=== PATIENT | female | born 1970 | race Caucasian/White ===

== ENCOUNTER → 2017-10-08 | Outpatient (CLI) | payer MEDICAID | LOC: FCPNEURO 21:00 | PROVIDERS: ATTEND Psychiatry & Neurology Neurology | DX: G47.33 Obstructive sleep apnea (adult) (pediatric) (principal) | CPT/HCPCS: 84144-90; 84481-90 ==

== ENCOUNTER → 2017-11-28 | Outpatient (CLI) | payer MEDICAID | LOC: FIMAGING 10:13 | PROVIDERS: ATTEND Obstetrics & Gynecology | DX: O09.521 Supervision of elderly multigravida, first trimester (principal); D25.9 Leiomyoma of uterus, unspecified; Z3A.12 12 weeks gestation of pregnancy ==

== ENCOUNTER 2018-06-18 13:55 | Observation (INO) | payer MEDICAID ==
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
[2018-06-18 15:18] LABS: PLATELET COUNT 176 10^3/uL (150-400)
--- NOTE | 2018-06-18 17:27 | OBGCSDC ---
General Delivery Information - General Info : 2 Para: 0 Abortions: 1 L&D Analgesia/Anesthesia Type: Other (Specify) (not delivered) Admission Date: 06/18/18 Labs: Hct 35.2 % (38.0-47.0) L 06/18/18 15:08 - Hospital Course Antepartum: 06/18/18 17:19 Pt had reactive NST and BPP schedule in office today. She had 8/8 on BPP and NST was started but patient's BP in office was 160/88 and the repeat pressure by this CNM was 158/90. PT sent to L&D for evaluation and PIH labs. Pt had continued reactive NST on L&D but BP continued to remain elevated. PIH labs wnl. Pt counselled on recommendation for induction of labor at this time due to elevated BP even with normal lab results. Pt declined any interventions and was discharged after signing AMA forms. Precautions re: signs and symptoms of PIH reviewed with pt. Data WESTLEY: 06/06/18 Gestational Age: 41 week(s) and 5 day(s) Discharge Information - Discharge Information Condition: Good Instruction/Follow Up: See Instruction Sheet (Pt counselled to return this evening or in the morning for induction of labor at 41 weeks 6 days.)
--- NOTE | 2018-06-18 17:37 | SOAPPROG ---
SOAP Progress Note Assessment/Plan: Assessment: Term IUP elevated BP AMA >40yo Plan: 06/18/18 15:45 SVE 0/50/-2 Discussed various cervical ripening options, pt briefly agreed to plan for placement of Cook Catheter for cervical ripening. After cervical exam not well tolerated, pt refused placement of Cook. Recommend return to unit this evening for cytotec induction of labor. Pt declines and requests to leave AMA. Objective: Laboratory Results 06/18/18 15:08 06/18/18 15:08 ICD10 Worksheet Patient Problems: Problems Problem Status Onset Hypertension affecting in third trimester Acute Post term at 41 weeks gestation Acute
--- NOTE | 2018-06-18 18:15 | OBPROG ---
Labor Progress Note Assessment/Plan: Assessment: 48 y/o @ 41 5/7 weeks by first trimester ultrasound and confirmed by MFM dating with Gestational HTN Plan: Pt signed out AMA today. She declines cervical ripening and any form of IOL. She has been extensively counseled about the risks of continuing this to her and to her baby including the possibility of demise. She says she is aware of these risks and chooses to leave. She was given precautions of S/Sx ;s of pre-eclampsia and she was told to RTO this week for continued surveillance. 06/18/18 18:16 Subjective/Intrapartum Course: 06/18/18 18:04 Reviewed patient's case with Consuelo Weinstein CNM. Pt was sent to L and D for elevated BP 140-170's/ 80's. She denied DURANT, scotomata, RUQ pain, cramping or contractions and says she feels good FM. Labs were sent and normal and urine was negative dip for protein. Quant P:C ratio is pending. She has been carefully monitored with NST/ BPP and assessment for fluid measurements all week and we have consistently recommended IOL due to AMA, gestational age > 40 weeks and now today Gestational HTN. Pt declines all recommended interventions. She declines cervical ripening and pitocin for IOL. Objective: 06/18/18 15:08 06/18/18 15:08 Uric Acid 4.3 mg/dL (2.5-6.8) 06/18/18 15:08 Total Bilirubin 0.2 mg/dL (0.1-1.4) 06/18/18 15:08 Conjugated Bilirubin 0.0 mg/dL (0.0-0.5) 06/18/18 15:08 Unconjugated Bilirubin 0.2 mg/dL (0.0-1.1) 06/18/18 15:08 AST 28 IU/L (14-46) 06/18/18 15:08 ALT 34 IU/L (9-52) 06/18/18 15:08 Lactate Dehydrogenase 415 IU/L (313-618) 06/18/18 15:08 - SVE Dilation (cm): 0 Effacement (%): Less than 50 Station: -2 - Contraction Pattern Assessment Current Contraction Pattern: Irregular - FHR Assessment Naylor FHR (bpm): 140 FHR Pattern Variability: Moderate FHR Category: 1 - AP Antepartum Course: 06/18/18 17:19 Pt had reactive NST and BPP schedule in office today. She had 8/8 on BPP and NST was started but patient's BP in office was 160/88 and the repeat pressure by this CNM was 158/90. PT sent to L&D for evaluation and PIH labs. Pt had continued reactive NST on L&D but BP continued to remain elevated. PIH labs wnl. Pt counselled on recommendation for induction of labor at this time due to elevated BP even with normal lab results. Pt declined any interventions and was discharged after signing AMA forms. Precautions re: signs and symptoms of PIH reviewed with pt. Oxytocin Orders Assessment - Pre-Induction/Augmentation Assessment Gestational Age: 41 week(s) and 5 day(s) ICD10 Worksheet Patient Problems: Problems Problem Status Onset Hypertension affecting in third trimester Acute Post term at 41 weeks gestation Acute
== END 2018-06-18 16:00 | disposition left against medical advice (07) ==
LOC: FLD 13:55
PROVIDERS: ADMIT Advanced Practice Midwife; ATTEND Obstetrics & Gynecology
DX: O13.3 Gestational [pregnancy-induced] hypertension without significant proteinuria, third trimester (principal); O48.0 Post-term pregnancy; O09.523 Supervision of elderly multigravida, third trimester; O99.283 Endocrine, nutritional and metabolic diseases complicating pregnancy, third trimester; E03.9 Hypothyroidism, unspecified; O34.13 Maternal care for benign tumor of corpus uteri, third trimester
CPT/HCPCS: G0378

== ENCOUNTER 2018-06-24 17:20 | Inpatient (IN) | payer MEDICAID ==
[2018-06-24] MEDS ORDERED: IBUPROFEN 600 MG TAB PO PRN (17:47)
[2018-06-24] MEDS ORDERED: MISOPROSTOL 200 MCG TAB PR PRN (17:47)
[2018-06-24] MEDS ORDERED: OLIVE OIL 118 ML BTL MISC PRN (17:47)
[2018-06-24] MEDS ORDERED: TERBUTALINE SULFATE 1 MG/ML VIAL IV PRN (17:47)
[2018-06-24] MEDS ORDERED: LIDOCAINE 1% 300 MG/30 ML SDV SC PRN (17:47)
[2018-06-24] MEDS ORDERED: LR 1,000 ML IV PRN (17:47)
[2018-06-24] MEDS ORDERED: OXYTOCIN/RINGERS LACTATE 1,000 ML IV PRN (17:47)
[2018-06-24] MEDS ORDERED: EPSOM SALT 454 GM TP PRN (17:47)
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
--- NOTE | 2018-06-24 21:58 | OBPROG ---
Labor Progress Note Assessment/Plan: Assessment: 48 yo (h/o SAB in 2011) today at 42w4d by WESTLEY 06/06/18 established by 9wk US - who presents for induction of labor. complicated by AMA, know large (8cm largest) intramural uterine fibroids, and new diagnoses of pre- eclampsia made last week (with BP criteria and PCR of 0.3) and oligohydramnios ( made today, AMOS 3.9). As above, patient has been non-compliant with clearly communicated clinical recommendations for testing and induction related to these problems. I had a long talk with Steffi and her partner. We discussed her elevated blood pressures as well as a possible plan for induction. As far as her blood pressure goes, I told her that I felt it was very important that we are able to establish an IV and check pre-eclampsia labs (she has thus far declined that since admission). I counseled her that if she has severe BP' s that are persistently > 160/110, that I would recommend bedrest, IV magnesium for seizure prophylaxis, and anti-hypertensives PRN. She is very set on being able to walk and get in the tub - I told her that she may be allowed to do those things ONLY if she has acceptable (ie non-severe) BP's. I was very clear that elevated severe range blood pressures can be very dangerous for both mother and baby and lead to a number of dangerous complications including (but not limited to) abruption, distress, and seizures for mom. At the conclusion of our conversation she did initially agree to IV access, PIH labs, and anti-hypertensives if needed. With regard to induction. We discussed options for how to get that process started. She has declined Pitocin (and states that she will continue to do so) , she also is declining AROM. She will not yet allow an exam, but as of yesterday if that exam is correct she has an unfavorable White's score and would benefit from cervical ripening. I reviewed the options for cervical ripening with her and we discussed the Cervidil could be a good option as we do not know how this baby will tolerate labor and we would have the ability to take that away to some degree if needed. She agreed to Cervidil as an initial plan for ripening. So at this point: - SCE and Cervidil for ripening if still unfavorable. - Continuous EFM throughout induction/labor process. - IV start, STAT PIH labs, serial BP's. - If persistent severe range BP's she needs IV labetalol per our protocol in escalating doses, and she will need IV magnesium for seizure prophylaxis. Subjective/Intrapartum Course: Met with Steffi and her partner with Victorino Blanca RN and Madhuri Mccabe CNM present. Met with them to discuss plan for induction and her elevated blood pressures. See Madhuri's H&P for a description of the recent events in this patient's care - but to briefly summarize, this patient has been resistant to many recommendations made for her care. Specifically, it was recommended that she be delivered by her due date (at least) and she has declined that. She did develop mild and occasionally severe range pressures over the past week (she was evaluated here on L&D on 06/18 and met BP criteria for at least gestational HTN at that time). At that time it was recommended to her that she stay and be induced, but she declined. Induction was then offered and planned for the following day and the patient declined. And over the intervening week since then she has continued to decline or fail to show up for components of recommended testing. Ultimately, Madhuri did convince the patient to present to L&D this evening to hopefully begin an induction process. She saw her in the office this afternoon where she also found an AMOS to be 3.9 - which is a new diagnosis of oligohydramnios. Her BP's on arrival were 160's/90's, she denies new sx of pre-eclampsia ( specifically denies DURANT, no vision changes, no LUQ pain but she does report focal pain where she feels her fibroid to be on the right side of her uterus - so mid-abdomen on the right). She reports that her cervix was checked by her utility worker film processing yesterday and was found to be 1/80/0. Objective: Laboratory Tests 06/18/18 15:30 Ur Random Creatinine 41.9 U Random Total Protein 12 H Laboratory Tests 06/18/18 15:08 BUN 11 Creatinine 0.6 Estimated GFR > 60 Uric Acid 4.3 Total Bilirubin 0.2 Conjugated Bilirubin 0.0 Unconjugated Bilirubin 0.2 AST 28 ALT 34 Lactate Dehydrogenase 415 - FHR Assessment Naylor FHR (bpm): 135 FHR Pattern Variability: Moderate FHR Category: 1 Oxytocin Orders Assessment - Pre-Induction/Augmentation Assessment Gestational Age: 42 week(s) and 4 day(s) ICD10 Worksheet Patient Problems: Problems Problem Status Onset Oligohydramnios Acute Post term at 42 weeks gestation Acute Hypertension affecting in third trimester Acute Post term at 41 weeks gestation Acute
[2018-06-24 23:15] LABS: PLATELET COUNT 213 10^3/uL (150-400)
--- NOTE | 2018-06-25 03:04 | OBPROG ---
Labor Progress Note Assessment/Plan: Assessment: 48 yo (h/o SAB in 2011) now at 42w5d by WESTLEY 06/06/18 established by 9wk US - who presents for induction of labor. complicated by AMA, know large (8cm largest) intramural uterine fibroids, and new diagnoses of pre- eclampsia made last week (with BP criteria and PCR of 0.3) and oligohydramnios ( made today, AMOS 3.9). As above, patient has been non-compliant with clearly communicated clinical recommendations for testing and induction related to these problems. SCE now and pt agreeable to AROM during that exam which was performed. Head very well applied to cervix, so not a lot of fluid returned, small amount that was blood-tinged. We did have a long talk about the importance of BP monitoring and treating severe range pressures. At this point we reviewed that she does certainly meet criteria for pre-eclampsia with severe features - PCR now higher than it was last week, other labs still WNL. We agreed that we could check her BP's every 15-30 minutes and if she had two consecutive pressures > 160/110 we could give her 20mg IV labetalol. Expectant mgmt following AROM for now, pt has and will likely decline Pit. Had negative GBS at 36 wks which is now technically - will default to risk factors, from which she doesn't qualify for treatment at this time. DAMON Subjective/Intrapartum Course: Steffi has thus far been declining antihypertensives and our recommendation for bedrest given her elevated BP's. She is declining magnesium sulfate. I had another long talk with her and made a deal that we could intermittently check her blood pressures and treat if she had two consecutive pressures that were > 160/110. Also accepts moving from the tub to the bed for an exam and AROM if she's more favorable. Objective: 06/24/18 23:04 06/24/18 23:04 Patient ABO/Rh O POSITIVE 06/24/18 23:04 Uric Acid 4.5 mg/dL (2.5-6.8) 06/24/18 23:04 Total Bilirubin 0.5 mg/dL (0.1-1.4) 06/24/18 23:04 Conjugated Bilirubin 0.2 mg/dL (0.0-0.5) 06/24/18 23:04 Unconjugated Bilirubin 0.3 mg/dL (0.0-1.1) 06/24/18 23:04 AST 24 IU/L (14-46) 06/24/18 23:04 ALT 32 IU/L (9-52) 06/24/18 23:04 Lactate Dehydrogenase 504 IU/L (313-618) 06/24/18 23:04 Laboratory Tests 06/24/18 06/24/18 06/24/18 22:30 23:04 23:04 WBC 12.13 H RBC 4.15 L Hgb 12.8 Hct 36.8 L MCV 88.7 MCH 30.8 MCHC 34.8 RDW 13.9 Plt Count 213 MPV 11.1 Neut % (Auto) 75.1 H Lymph % (Auto) 18.5 Divide % (Auto) 5.2 Eos % (Auto) 0.2 L Baso % (Auto) 0.3 Nucleat RBC Rel Count 0.0 Absolute Neuts (auto) 9.11 H Absolute Lymphs (auto) 2.25 Absolute Monos (auto) 0.63 Absolute Eos (auto) 0.02 L Absolute Basos (auto) 0.04 Absolute Nucleated RBC 0.00 Immature Gran % 0.7 Immature Gran # 0.08 BUN 9 Creatinine 0.6 Estimated GFR > 60 Uric Acid 4.5 Total Bilirubin 0.5 Conjugated Bilirubin 0.2 Unconjugated Bilirubin 0.3 AST 24 ALT 32 Lactate Dehydrogenase 504 Ur Random Creatinine 42.7 U Random Total Protein 23 H - SVE Dilation (cm): 3 Effacement (%): 90 Station: 0 Membranes: AROM Amniotic Fluid Color: Bloody (Small amount, head well-engaged) - FHR Assessment Naylor FHR (bpm): 135 FHR Pattern Variability: Moderate FHR Category: 2 - Procedures Non-surgical Procedures: Amniotomy Oxytocin Orders Assessment - Pre-Induction/Augmentation Assessment Gestational Age: 42 week(s) and 4 day(s) ICD10 Worksheet Patient Problems: Problems Problem Status Onset Oligohydramnios Acute Post term at 42 weeks gestation Acute Hypertension affecting in third trimester Acute Post term at 41 weeks gestation Acute
--- NOTE | 2018-06-25 09:07 | OBPROG ---
Labor Progress Note Assessment/Plan: Assessment: IUP at 42w5d preeclampsia with oligohydramnios, labile BP up to 170s/100s AMA uterine fibroids induction - pt allowed AROM approx 3 am but declining meds Plan: Cont to allow MD to manage care at this time CNM will provide support for labor and delivery. discuss plan of care with Steffi Tol[place] consider social service consult 06/25/18 12:15 Subjective/Intrapartum Course: Steffi has thus far been declining antihypertensives and our recommendation for bedrest given her elevated BP's. She is declining magnesium sulfate. I had another long talk with her and made a deal that we could intermittently check her blood pressures and treat if she had two consecutive pressures that were > 160/110. Also accepts moving from the tub to the bed for an exam and AROM if she's more favorable. Steffi is not agreeable to cont EFM or serial BP's. She is in the tub and will allow for doppler of FHTs, but states they make the baby move and make her in more pain. Objective: 06/24/18 23:04 06/24/18 23:04 Patient ABO/Rh O POSITIVE 06/24/18 23:04 Uric Acid 4.5 mg/dL (2.5-6.8) 06/24/18 23:04 Total Bilirubin 0.5 mg/dL (0.1-1.4) 06/24/18 23:04 Conjugated Bilirubin 0.2 mg/dL (0.0-0.5) 06/24/18 23:04 Unconjugated Bilirubin 0.3 mg/dL (0.0-1.1) 06/24/18 23:04 AST 24 IU/L (14-46) 06/24/18 23:04 ALT 32 IU/L (9-52) 06/24/18 23:04 Lactate Dehydrogenase 504 IU/L (313-618) 06/24/18 23:04 - SVE Membranes: AROM Amniotic Fluid Color: Bloody (Small amount, head well-engaged) - Contraction Pattern Assessment Current Contraction Pattern: Irregular - FHR Assessment Naylor FHR (bpm): 130 (doppler only) - Procedures Non-surgical Procedures: Amniotomy Oxytocin Orders Assessment - Pre-Induction/Augmentation Assessment Gestational Age: 42 week(s) and 4 day(s) ICD10 Worksheet Patient Problems: Problems Problem Status Onset Oligohydramnios Acute Post term at 42 weeks gestation Acute Preeclampsia Acute Uterine fibroids affecting Acute
[2018-06-25] MEDS ORDERED: POLYETHYLENE GLYCOL 3350 17 GM PKT PO PRN (09:08)
[2018-06-25] MEDS: MAGNESIUM HYDROXIDE 30 ML UDCUP PO PRN (09:23)
[2018-06-25] MEDS ORDERED: MAGNESIUM SULF 4 GM/WATER 100 ML BAG IV ONE (10:42)
[2018-06-25] MEDS ORDERED: MAGNESIUM SULF 20 GM/500 ML BAG IV ONE (10:43)
[2018-06-25] MEDS ORDERED: OXYTOCIN/RINGERS LACTATE 30 UNIT/500 ML BAG IV ONE (10:45)
[2018-06-25] MEDS ORDERED: MAGNESIUM SULF 4 GM/WATER 100 ML IV ONE (10:46)
[2018-06-25] MEDS ORDERED: CALCIUM GLUC 10% 1 GM/10 ML VIAL IVP PRN (10:46)
[2018-06-25] MEDS ORDERED: LR 500 ML IV PRN (10:51)
[2018-06-25] MEDS ORDERED: OXYTOCIN/RINGERS LACTATE 500 ML IV SCH (11:00)
--- NOTE | 2018-06-25 11:07 | OBPROG ---
Labor Progress Note Assessment/Plan: Assessment: IUP at 42w5d preeclampsia with oligohydramnios, labile BP up to 170s/100s AMA uterine fibroids induction - pt allowed AROM approx 3 am but declining meds Have discussed pt's noncompliance with Nina Whitney, [facility] atty. Plan: Pt has been refusing management on all levels, currently NO blood pressure monitoring regularly/ HTN meds/Mg/ continuous monitoring. Discussed again the serious nature of her health complications and that she and baby are at risk. She has risk of seizures/abruption/liver and kidney damage/pulmonary edema/ distress unrecognized/worsening until delivery and no active labor yet/dystocia of labor/heart failure/ or maternal or lifelong impairment. Pt currently states that she'll agree to magnesium - told her that entails monitoring baby and blood pressures. Rec pitocin for augmenting labor - pt refuses until certified midwife checks her cx and if she hasn't progressed. Have told pt that if she doesn't agree to interventions for her/baby safety, that we will intervene and have a court order to override her wishes. 06/25/18 10:55 Subjective/Intrapartum Course: Steffi has thus far been declining antihypertensives and our recommendation for bedrest given her elevated BP's. She is declining magnesium sulfate. I had another long talk with her and made a deal that we could intermittently check her blood pressures and treat if she had two consecutive pressures that were > 160/110. Also accepts moving from the tub to the bed for an exam and AROM if she's more favorable. 06/25/18 11:07 Pt states this am was the first that she felt she was heard with certified midwife and able to feel peace to let her body relax. States that I got in her space and she ask me to back away. Says she'll agree to cont magnesium sulfate. states that the monitor hurts her belly and I told her we could find ways to help the pain. upset that I offered her an KENNEY because that's specifically in her plan NOT to mention to her. Last BP 140/82, prior one was 170/95 Objective: 06/24/18 23:04 06/24/18 23:04 Patient ABO/Rh O POSITIVE 06/24/18 23:04 Uric Acid 4.5 mg/dL (2.5-6.8) 06/24/18 23:04 Total Bilirubin 0.5 mg/dL (0.1-1.4) 06/24/18 23:04 Conjugated Bilirubin 0.2 mg/dL (0.0-0.5) 06/24/18 23:04 Unconjugated Bilirubin 0.3 mg/dL (0.0-1.1) 06/24/18 23:04 AST 24 IU/L (14-46) 06/24/18 23:04 ALT 32 IU/L (9-52) 06/24/18 23:04 Lactate Dehydrogenase 504 IU/L (313-618) 06/24/18 23:04 last recorded monitoring was approx 5 min and had minimal variability with no accels, baseline 140s. no decels - SVE Membranes: AROM Amniotic Fluid Color: Bloody (Small amount, head well-engaged) - Procedures Non-surgical Procedures: Amniotomy Oxytocin Orders Assessment - Pre-Induction/Augmentation Assessment Gestational Age: 42 week(s) and 4 day(s) ICD10 Worksheet Patient Problems: Problems Problem Status Onset Oligohydramnios Acute Post term at 42 weeks gestation Acute Preeclampsia Acute Uterine fibroids affecting Acute Hypertension affecting in third trimester Acute Post term at 41 weeks gestation Acute - ICD10 Problem Qualifiers (1) Preeclampsia (2) Uterine fibroids affecting
[2018-06-25 11:49] LABS: PLATELET COUNT 195 10^3/uL (150-400)
[2018-06-25] MEDS: Mag Sulf 500 ML IV SCH ×2 (12:07→22:13)
--- NOTE | 2018-06-25 12:15 | OBPROG ---
Labor Progress Note Assessment/Plan: Assessment: IUP at 42w5d preeclampsia with oligohydramnios, labile BP up to 170s/100s AMA uterine fibroids induction - AROM @ 0300, now agreeable to pitocin Pt now agreeable to magnesium sulfate and cont EFM/serial BP's Plan: Cont to allow MD to manage care at this time CNM will provide support for labor and delivery. discuss plan of care with Steffi Toledo 06/25/18 14:21 Subjective/Intrapartum Course: Steffi has thus far been declining antihypertensives and our recommendation for bedrest given her elevated BP's. She is declining magnesium sulfate. I had another long talk with her and made a deal that we could intermittently check her blood pressures and treat if she had two consecutive pressures that were > 160/110. Also accepts moving from the tub to the bed for an exam and AROM if she's more favorable. Steffi is not agreeable to cont EFM or serial BP's. She is in the tub and will allow for doppler of FHTs, but states they make the baby move and make her in more pain. Steffi is now agreeable to cont EFM and serial BP's along with magnesium sulfate. Steffi Toledo, spoke with pt in great detail about risks and pt agrees to proceed with recommendations by Steffi Toledo. Desires CNM to be present and manage care for labor and . Objective: 06/25/18 11:30 06/25/18 11:30 Patient ABO/Rh O POSITIVE 06/24/18 23:04 Uric Acid 5.0 mg/dL (2.5-6.8) 06/25/18 11:30 Total Bilirubin 0.5 mg/dL (0.1-1.4) 06/24/18 23:04 Conjugated Bilirubin 0.2 mg/dL (0.0-0.5) 06/24/18 23:04 Unconjugated Bilirubin 0.3 mg/dL (0.0-1.1) 06/24/18 23:04 AST 23 IU/L (14-46) 06/25/18 11:30 ALT 28 IU/L (9-52) 06/25/18 11:30 Lactate Dehydrogenase 530 IU/L (313-618) 06/25/18 11:30 - SVE Dilation (cm): 3 Effacement (%): 90 Station: -1 Membranes: AROM Amniotic Fluid Color: Bloody (Small amount, head well-engaged) - Contraction Pattern Assessment Current Contraction Pattern: Irregular - Procedures Non-surgical Procedures: Amniotomy Oxytocin Orders Assessment - Pre-Induction/Augmentation Assessment Gestational Age: 42 week(s) and 4 day(s) ICD10 Worksheet Patient Problems: Problems Problem Status Onset Oligohydramnios Acute Post term at 42 weeks gestation Acute Preeclampsia Acute Uterine fibroids affecting Acute
[2018-06-25] MEDS ORDERED: LABETALOL HCL 5 MG/ML 20 ML MDV IVP ONE ×3 (14:16→21:41)
[2018-06-25] MEDS: CALCIUM CARBONATE 500 MG CHEWABLE TAB PO PRN ×2 (14:57→22:15)
--- NOTE | 2018-06-25 16:45 | OBPROG ---
Labor Progress Note Assessment/Plan: Assessment: IUP at 42w5d preeclampsia with oligohydramnios, labile BP up to 170s/100s AMA uterine fibroids induction - pt allowed AROM approx 3 am, now allowing pitocin although doesn't want much Have discussed pt's noncompliance with Nina Whitney [facility] atty. Plan: Pt is now on magnesium drip and allowing FHT monitoring and allowing BP assessment. Repeat labs stable...Pt has not been able to urinate and advised pt of the concern for her kidney health. Told the patient if she wasn't able to urinate that we needed a catheter to closely watch ins/outs. Advised an IUPC to help guide pit use and that would allow her belly to be without one strap. Pt declined 06/25/18 10:55 06/25/18 16:09 06/25/18 17:25 Subjective/Intrapartum Course: Steffi has thus far been declining antihypertensives and our recommendation for bedrest given her elevated BP's. She is declining magnesium sulfate. I had another long talk with her and made a deal that we could intermittently check her blood pressures and treat if she had two consecutive pressures that were > 160/110. Also accepts moving from the tub to the bed for an exam and AROM if she's more favorable. Steffi is not agreeable to cont EFM or serial BP's. She is in the tub and will allow for doppler of FHTs, but states they make the baby move and make her in more pain. Steffi is now agreeable to cont EFM and serial BP's along with magnesium sulfate. Steffi Toledo, spoke with pt in great detail about risks and pt agrees to proceed with recommendations by Steffi Toledo. Desires CNM to be present and manage care for labor and . 06/25/18 18:12 The patient has now agreed to IUPC and FSE through the autism motor specialist, PS. Also now has a frey as she couldn't urinate - good UOP . Just now had significant decel with a contraction and has allowed amnioinfusion - just rec'd bolus - FHTs appear better with baseline 140s Objective: 06/25/18 11:30 06/25/18 11:30 Patient ABO/Rh O POSITIVE 06/24/18 23:04 Uric Acid 5.0 mg/dL (2.5-6.8) 06/25/18 11:30 Total Bilirubin 0.5 mg/dL (0.1-1.4) 06/24/18 23:04 Conjugated Bilirubin 0.2 mg/dL (0.0-0.5) 06/24/18 23:04 Unconjugated Bilirubin 0.3 mg/dL (0.0-1.1) 06/24/18 23:04 AST 23 IU/L (14-46) 06/25/18 11:30 ALT 28 IU/L (9-52) 06/25/18 11:30 Lactate Dehydrogenase 530 IU/L (313-618) 06/25/18 11:30 Temp Pulse Resp BP Pulse Ox 86 179/85 H 06/25/18 14:43 06/25/18 14:43 - SVE Membranes: AROM Amniotic Fluid Color: Bloody (Small amount, head well-engaged) - Contraction Pattern Assessment Current Contraction Pattern: Regular (having mild ctxns by IUPC on 3 mu/min) - FHR Assessment Naylor FHR (bpm): 140 FHR Pattern Variability: Moderate FHR Category: 2 (recent deep variable with contraction) - Procedures Non-surgical Procedures: Amniotomy Oxytocin Orders Assessment - Pre-Induction/Augmentation Assessment Gestational Age: 42 week(s) and 4 day(s) ICD10 Worksheet Patient Problems: Problems Problem Status Onset Oligohydramnios Acute Post term at 42 weeks gestation Acute Preeclampsia Acute Uterine fibroids affecting Acute - ICD10 Problem Qualifiers (1) Preeclampsia (2) Uterine fibroids affecting
--- NOTE | 2018-06-25 17:41 | ASMTCMCOM ---
CM Note CM Note Notes: Met with multiple staff members regarding patient's medical circumstances and risks to the mother and child. Met with patient's partner ET to offer emotional support and begin a psychosocial assessment. ET expressed his frustration with too many people being involved and how it is impacting his partner's stress levels and his own. Despite the complications regarding this case, it will be positive for staff to be mindful of this and let those already involved be the main caretakers without bringing in more staff. 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 He thinks between Steffi and himself and Steffi's parents (who live close by) they will have child care lead teacher covered. He also expressed they are doing ok financially. ET discussed how he is the more flexible one in the relationship and Steffi struggles with becoming upset when things don't go as planned or as she had dreamed it would go. He briefly touched on when he tries to help her go with what is happening, she becomes frustrated and angry with him. He feels caught in the middle frequently. ET did talk about becoming a father and he feels parenting does not have to be complicated. He wants to get the child involved in activities she likes to help her build a sense of herself. 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 ET affirms he does not have problems making decisions. He says Steffi frequently has difficulty deciding even on a paint color. They are reviewing names and he knows the name he would like but is deferring to Steffi's list of girl names. He has told her to narrow to 3 and then he will pick from there.ET was anxious to get back to the room, as Steffi is in induced labor. Will follow up again tomorrow with the family to complete psychosocial and assessment for resources. CM will follow. Date Signed: 06/25/2018 05:41 PM Electronically Signed By:Ariana Charles LCSW
--- NOTE | 2018-06-25 17:45 | OBPROG ---
Labor Progress Note Assessment/Plan: Assessment: 48yo with IUP @ 42w5d preeclampsia- on Magnesium sulfate AMA uterine fibroids induction - pitocin @ 3mU Plan: consider amnioinfusion if variable decels cont Cont to allow MD to manage care at this time CNM will provide support for labor and delivery. Steffi Tre agrees with plan of care Subjective/Intrapartum Course: Steffi has thus far been declining antihypertensives and our recommendation for bedrest given her elevated BP's. She is declining magnesium sulfate. I had another long talk with her and made a deal that we could intermittently check her blood pressures and treat if she had two consecutive pressures that were > 160/110. Also accepts moving from the tub to the bed for an exam and AROM if she's more favorable. Steffi is not agreeable to cont EFM or serial BP's. She is in the tub and will allow for doppler of FHTs, but states they make the baby move and make her in more pain. Steffi is now agreeable to cont EFM and serial BP's along with magnesium sulfate. Steffi Toledo, spoke with pt in great detail about risks and pt agrees to proceed with recommendations by Steffi Toledo. Desires CNM to be present and manage care for labor and . 06/25/18 17:44 Steffi doing ok- reports pain with contractions, unable to void. She does not wish to cont IOL with pitocin due to the pain. Explained need for strict I&O's with MgSO4- offered frey vs straight cath. Also encouraged IUPC/FSE for optimal monitoring- pt agrees. Objective: 06/25/18 11:30 06/25/18 11:30 Patient ABO/Rh O POSITIVE 06/24/18 23:04 Uric Acid 5.0 mg/dL (2.5-6.8) 06/25/18 11:30 Total Bilirubin 0.5 mg/dL (0.1-1.4) 06/24/18 23:04 Conjugated Bilirubin 0.2 mg/dL (0.0-0.5) 06/24/18 23:04 Unconjugated Bilirubin 0.3 mg/dL (0.0-1.1) 06/24/18 23:04 AST 23 IU/L (14-46) 06/25/18 11:30 ALT 28 IU/L (9-52) 06/25/18 11:30 Lactate Dehydrogenase 530 IU/L (313-618) 06/25/18 11:30 Temp Pulse Resp BP Pulse Ox 86 179/85 H 06/25/18 14:43 06/25/18 14:43 - SVE Dilation (cm): 4 Effacement (%): 90 Station: -1 Membranes: AROM Amniotic Fluid Color: Bloody (Small amount, head well-engaged) - Contraction Pattern Assessment Current Contraction Pattern: Irregular - FHR Assessment Naylor FHR Pattern Variability: Moderate FHR Category: 1 - Procedures Non-surgical Procedures: Amniotomy, FSE, IUPC Oxytocin Orders Assessment - Pre-Induction/Augmentation Assessment Gestational Age: 42 week(s) and 4 day(s) ICD10 Worksheet Patient Problems: Problems Problem Status Onset Oligohydramnios Acute Post term at 42 weeks gestation Acute Preeclampsia Acute Uterine fibroids affecting Acute
--- NOTE | 2018-06-25 19:19 | PREANESOB ---
Obstetric Pre-Anesthesia Info - General Info : 1 Para: 0 WESTLEY: 06/06/18 Gestational Age: 42 week(s) and 4 day(s) - Info Status: Postmature, Naylor, Oligohydramnios Monitors: Internal - Labor Status Cervical Dilation per last OB SVE: 4 Station per last OB SVE: -1 Amniotic Fluid Color: Bloody (Small amount, head well-engaged) Pitocin: In Use PIH: Severe Magnesium Sulfate in Use: Yes Anesthesia ROS: Pt at post-dates with olighydramnios and severe pre-eclampsia wanting minimal interventions. Pt and partner have expressed frustration with multiple people being involved in care, so I will not introduce myself at this time. I have been called in by Dr. Toledo to be available as the patient is having a slow progression of her labor is a high risk for emergency C/S. I will remain available in the hospital until the patient delivers. Allergies/Adverse Reactions: Allergy/AdvReac Type Severity Reaction Status Date / Time No Known Drug Allergies Allergy Verified 06/18/18 14:36 Visit Medications: Generic Name Dose Route Start Last Admin Trade Name Horaceq PRN Reason Stop Dose Admin Bisacodyl 10 mg 06/25/18 09:08 Dulcolax Rectal [place] 12/22/18 09:07 DAILY PRN Constipation Protocol Calcium Carbonate 500 mg 06/25/18 14:18 06/25/18 14:57 Tums PO 12/22/18 14:17 500 mg TID PRN Administration Indigestion Calcium Gluconate 1 gm 06/25/18 10:46 Calcium Gluconate IVP 12/22/18 10:45 PRN PRN Magnesium Toxicity Oxytocin/Lactated Ringer's 1,000 mls @ 125 mls/hr 06/24/18 17:47 Pitocin 20 Units/Lr (Premix) IV PRN PRN Post bleeding Magnesium Sulfate 500 mls @ 50 mls/hr 06/25/18 11:00 06/25/18 12:07 Magnesium Sulfate 20 Gm/ 500 Ml (Premix) IV 12/22/18 10:59 500 mls CONT NIR Administration Lactated Ringer's 500 mls @ 500 mls/hr 06/25/18 10:51 Lr IV 06/26/18 10:51 PRN PRN Maternal Hypotension Oxytocin/Lactated Ringer's 500 mls @ 0 mls/hr 06/25/18 11:00 06/25/18 12:07 Pitocin 30 Units/Lr (Premix) IV 12/22/18 10:59 500 mls CONT NIR Administration Protocol Per Protocol Famotidine/Sodium Chloride 50 mls @ 200 mls/hr 06/25/18 14:30 Pepcid 20 Mg (Premix) IV 12/22/18 14:29 Q12HRS NIR Ibuprofen 600 mg 06/24/18 17:47 Motrin PO ONCE PRN post , pain Lidocaine HCl 300 mg 06/24/18 17:47 Lidocaine Hcl 1% SC 12/21/18 17:46 ONCE PRN episiotomy Magnesium Hydroxide 30 ml 06/25/18 09:08 06/25/18 09:23 Milk Of Magnesia PO 12/22/18 09:07 30 ml DAILY PRN Administration Constipation Protocol Magnesium Sulfate 454 gm 06/24/18 17:47 Epsom Salt TP 12/21/18 17:46 Q1H PRN perineal discomfort Misoprostol 800 - 1,000 mcg 06/24/18 17:47 Cytotec [place] ONCE PRN Vaginal Atony/Bleeding [employer] Oil 118 ml 06/24/18 17:47 Sweet Oil MISC 12/21/18 17:46 ONCE PRN perineal massage Polyethylene Glycol 17 gm 06/25/18 09:08 Miralax PO 12/22/18 09:07 DAILY PRN Constipation, patient prefers Protocol Senna/Docusate Sodium 1 - 2 tab 06/25/18 21:00 Senokot-S PO 12/22/18 20:59 BID NIR Protocol Terbutaline Sulfate 0.25 mg 06/24/18 17:47 Brethine IV 12/21/18 17:46 ONCE PRN Tachysystole Discontinued Medications Generic Name Dose Route Start Last Admin Trade Name Freq PRN Reason Stop Dose Admin Lactated Ringer's 1,000 mls @ 0 mls/hr 06/24/18 17:47 06/25/18 09:24 Lr IV 06/25/18 17:46 1,000 mls PRN PRN Administration SEE PROTOCOL CONDITIONS Protocol Per Protocol Magnesium Sulfate 100 mls @ 200 mls/hr 06/25/18 10:46 06/25/18 11:33 Magnesium Sulf 4 Gm (Premix) IV 06/25/18 11:15 100 mls ONCE ONE Administration Labetalol HCl 200 mg 06/25/18 09:00 Trandate PO 12/22/18 08:59 TID NIR Labetalol HCl 10 mg 06/25/18 14:16 06/25/18 14:43 Trandate Injection IVP 06/25/18 14:17 10 mg ONCE ONE Administration Magnesium Sulfate Confirm 06/25/18 10:42 Magnesium Sulf 4 Gm (Premix) Administered 06/25/18 10:43 Dose 4 gm IV .STK-MED ONE Magnesium Sulfate Confirm 06/25/18 10:43 Magnesium Sulfate 20 Gm/ 500 Ml (Premix) Administered 06/25/18 10:44 Dose 20 gm IV .STK-MED ONE Misoprostol 50 mcg 06/24/18 18:00 Cytotec PO 12/21/18 17:59 Q4 [facility] Oxytocin/Lactated Ringer's Confirm 06/25/18 10:45 Pitocin 30 Units/Lr (Premix) Administered 06/25/18 10:46 Dose 30 unit IV .STK-MED ONE - Social History Substance Use/Abuse: Denies - Vital Signs Latest Vital Signs (Nursing): Temp Pulse Resp BP Pulse Ox 86 179/85 H 06/25/18 14:43 06/25/18 14:43 Height/Weight (Nursing): Height 162.56 cm Weight 94.801 kg Labs: 06/25/18 11:30 06/25/18 11:30 Patient ABO/Rh O POSITIVE 06/24/18 23:04 Uric Acid 5.0 mg/dL (2.5-6.8) 06/25/18 11:30 Total Bilirubin 0.5 mg/dL (0.1-1.4) 06/24/18 23:04 Conjugated Bilirubin 0.2 mg/dL (0.0-0.5) 06/24/18 23:04 Unconjugated Bilirubin 0.3 mg/dL (0.0-1.1) 06/24/18 23:04 AST 23 IU/L (14-46) 06/25/18 11:30 ALT 28 IU/L (9-52) 06/25/18 11:30 Lactate Dehydrogenase 530 IU/L (313-618) 06/25/18 11:30
[2018-06-25] MEDS ORDERED: TERBUTALINE SULFATE 1 MG/ML VIAL ONE (19:35)
[2018-06-25] MEDS ORDERED: AMMONIA AROMATIC 1 EACH AMP IH ONE (19:35)
[2018-06-25] MEDS ORDERED: OXYTOCIN 10 UNIT/ML VIAL ONE (19:35)
[2018-06-25] MEDS ORDERED: OLIVE OIL 118 ML BTL ONE (19:35)
[2018-06-25] MEDS ORDERED: LIDOCAINE 1% 300 MG/30 ML SDV ONE (19:35)
[2018-06-25] MEDS ORDERED: MISOPROSTOL 200 MCG TAB ONE (19:36)
--- NOTE | 2018-06-25 19:59 | OBPROG ---
Labor Progress Note Assessment/Plan: Assessment: 48yo with IUP @ 42w5d preeclampsia- on Magnesium sulfate AMA uterine fibroids induction - pitocin @ 3mU Cat 2 FHR tracing Amnioinfusion Plan: Cont pitocin augmentation Cont to allow MD to manage care at this time CNM will provide support for labor and delivery. Steffi Toledo agrees with plan of care 06/25/18 19:56 Subjective/Intrapartum Course: Steffi has thus far been declining antihypertensives and our recommendation for bedrest given her elevated BP's. She is declining magnesium sulfate. I had another long talk with her and made a deal that we could intermittently check her blood pressures and treat if she had two consecutive pressures that were > 160/110. Also accepts moving from the tub to the bed for an exam and AROM if she's more favorable. Steffi is not agreeable to cont EFM or serial BP's. She is in the tub and will allow for doppler of FHTs, but states they make the baby move and make her in more pain. Steffi is now agreeable to cont EFM and serial BP's along with magnesium sulfate. Steffi Toledo, spoke with pt in great detail about risks and pt agrees to proceed with recommendations by Steffi Toledo. Desires CNM to be present and manage care for labor and . 06/25/18 18:12 The patient has now agreed to IUPC and FSE through the banquet coordinator, PS. Also now has a frey as she couldn't urinate - good UOP . Just now had significant decel with a contraction and has allowed amnioinfusion - just rec'd bolus - FHTs appear better with baseline 140s 06/25/18 19:57 Steffi has been in multiple positions and is having hard time managing pain with contractions. She does not like the internal monitors but understands importance. Her and partner have voiced concerns re: possible c/s. I discussed that at this time c/s is not indicated and reviewed when c/s would be indicated. Offered Steffi Toledo to come review B/R/A and to obtain consent, pt declines. Objective: 06/25/18 11:30 06/25/18 11:30 Patient ABO/Rh O POSITIVE 06/24/18 23:04 Uric Acid 5.0 mg/dL (2.5-6.8) 06/25/18 11:30 Total Bilirubin 0.5 mg/dL (0.1-1.4) 06/24/18 23:04 Conjugated Bilirubin 0.2 mg/dL (0.0-0.5) 06/24/18 23:04 Unconjugated Bilirubin 0.3 mg/dL (0.0-1.1) 06/24/18 23:04 AST 23 IU/L (14-46) 06/25/18 11:30 ALT 28 IU/L (9-52) 06/25/18 11:30 Lactate Dehydrogenase 530 IU/L (313-618) 06/25/18 11:30 Temp Pulse Resp BP Pulse Ox 86 179/85 H 06/25/18 14:43 06/25/18 14:43 - SVE Membranes: AROM Amniotic Fluid Color: Bloody (Small amount, head well-engaged) - Contraction Pattern Assessment Current Contraction Pattern: Regular (having mild ctxns by IUPC on 3 mu/min) - Procedures Non-surgical Procedures: Amniotomy Oxytocin Orders Assessment - Pre-Induction/Augmentation Assessment Gestational Age: 42 week(s) and 4 day(s) ICD10 Worksheet Patient Problems: Problems Problem Status Onset Oligohydramnios Acute Post term at 42 weeks gestation Acute Preeclampsia Acute Uterine fibroids affecting Acute
[2018-06-25] MEDS: FAMOTIDINE 20 MG/NACL 50 ML IV SCH (21:53)
--- NOTE | 2018-06-25 22:22 | OBPROG ---
Labor Progress Note Assessment/Plan: Assessment: IUP at 42w5d preeclampsia with oligohydramnios, labile BP up to 170-180s/80-90s - on magnesium/frey with adeq output AMA uterine fibroids induction - pt allowed AROM approx 3 am, on pitocin, slowly increasing Have discussed pt's noncompliance with Nina Whitney [facility] attflores. Plan: pt had IUPC and FSE placed at time of frye. IUPC very helpful when amnioinfusion was needed after severe decels noted with ctxns. FHTs have been cat I since. Pt has been asking questions about KENNEY as she reports difficulty with ctxns 06/25/18 10:55 06/25/18 16:09 06/25/18 17:25 06/25/18 22:18 Subjective/Intrapartum Course: Steffi has thus far been declining antihypertensives and our recommendation for bedrest given her elevated BP's. She is declining magnesium sulfate. I had another long talk with her and made a deal that we could intermittently check her blood pressures and treat if she had two consecutive pressures that were > 160/110. Also accepts moving from the tub to the bed for an exam and AROM if she's more favorable. Steffi is not agreeable to cont EFM or serial BP's. She is in the tub and will allow for doppler of FHTs, but states they make the baby move and make her in more pain. Steffi is now agreeable to cont EFM and serial BP's along with magnesium sulfate. Steffi Toledo, spoke with pt in great detail about risks and pt agrees to proceed with recommendations by Steffi Toledo. Desires CNM to be present and manage care for labor and . 06/25/18 18:12 The patient has now agreed to IUPC and FSE through the skimmer reverberatory, PS. Also now has a frey as she couldn't urinate - good UOP . Just now had significant decel with a contraction and has allowed amnioinfusion - just rec'd bolus - FHTs appear better with baseline 140s 06/25/18 19:57 Steffi has been in multiple positions and is having hard time managing pain with contractions. She does not like the internal monitors but understands importance. Her and partner have voiced concerns re: possible c/s. I discussed that at this time c/s is not indicated and reviewed when c/s would be indicated. Offered Steffi Toledo to come review B/R/A and to obtain consent, pt declines. 06/25/18 22:22 Pt continues to feel forced into most of these interventions - that I threatened her with lawsuit to comply with interventions. Has currently been counselled on pain management options and has interest in KENNEY - but not yet. HTN noted up to 180s/70-80s - responded to 20 mg labetolol. Objective: 06/25/18 11:30 06/25/18 11:30 Patient ABO/Rh O POSITIVE 06/24/18 23:04 Uric Acid 5.0 mg/dL (2.5-6.8) 06/25/18 11:30 Total Bilirubin 0.5 mg/dL (0.1-1.4) 06/24/18 23:04 Conjugated Bilirubin 0.2 mg/dL (0.0-0.5) 06/24/18 23:04 Unconjugated Bilirubin 0.3 mg/dL (0.0-1.1) 06/24/18 23:04 AST 23 IU/L (14-46) 06/25/18 11:30 ALT 28 IU/L (9-52) 06/25/18 11:30 Lactate Dehydrogenase 530 IU/L (313-618) 06/25/18 11:30 Temp Pulse Resp BP Pulse Ox 86 179/85 H 06/25/18 14:43 06/25/18 14:43 - SVE Membranes: AROM Amniotic Fluid Color: Bloody (Small amount, head well-engaged) - Contraction Pattern Assessment Current Contraction Pattern: Regular (having mild ctxns by IUPC on 3 mu/min) - Procedures Non-surgical Procedures: Amniotomy Oxytocin Orders Assessment - Pre-Induction/Augmentation Assessment Gestational Age: 42 week(s) and 4 day(s) ICD10 Worksheet Patient Problems: Problems Problem Status Onset Oligohydramnios Acute Post term at 42 weeks gestation Acute Preeclampsia Acute Uterine fibroids affecting Acute - ICD10 Problem Qualifiers (1) Preeclampsia (2) Uterine fibroids affecting
[2018-06-26] MEDS ORDERED: fentaNYL 2MCG/ML/BUP 0.1% RTU 100 ML BAG EP ONE (00:28)
[2018-06-26] MEDS ORDERED: LR 500 ML IV SCH (01:30)
[2018-06-26] MEDS ORDERED: fentaNYL 2MCG/ML/BUP 0.1% RTU 100 ML EP SCH (01:30)
[2018-06-26] MEDS ORDERED: PHENYLEPHRINE HCL 100 MCG/ML SYR IVP PRN (01:41)
--- NOTE | 2018-06-26 02:34 | OBPROG ---
Labor Progress Note Assessment/Plan: Assessment: 48yo with IUP @ 42w5d preeclampsia- on Magnesium sulfate AMA uterine fibroids induction - pitocin @ 3mU Cat 2 FHR tracing Amnioinfusion KENNEY Plan: Cont pitocin augmentation start amnioinfusion (bolus) Cont to allow MD to manage care at this time CNM will provide support for labor and delivery. Steffi Toledo agrees with plan of care 06/25/18 19:56 06/26/18 02:32 Subjective/Intrapartum Course: Steffi has thus far been declining antihypertensives and our recommendation for bedrest given her elevated BP's. She is declining magnesium sulfate. I had another long talk with her and made a deal that we could intermittently check her blood pressures and treat if she had two consecutive pressures that were > 160/110. Also accepts moving from the tub to the bed for an exam and AROM if she's more favorable. Steffi is not agreeable to cont EFM or serial BP's. She is in the tub and will allow for doppler of FHTs, but states they make the baby move and make her in more pain. Steffi is now agreeable to cont EFM and serial BP's along with magnesium sulfate. Steffi Toledo, spoke with pt in great detail about risks and pt agrees to proceed with recommendations by Steffi Toledo. Desires CNM to be present and manage care for labor and . 06/25/18 18:12 The patient has now agreed to IUPC and FSE through the associate professor of history, PS. Also now has a frey as she couldn't urinate - good UOP . Just now had significant decel with a contraction and has allowed amnioinfusion - just rec'd bolus - FHTs appear better with baseline 140s 06/25/18 19:57 Steffi has been in multiple positions and is having hard time managing pain with contractions. She does not like the internal monitors but understands importance. Her and partner have voiced concerns re: possible c/s. I discussed that at this time c/s is not indicated and reviewed when c/s would be indicated. Offered Steffi Toledo to come review B/R/A and to obtain consent, pt declines. 06/25/18 22:22 Pt continues to feel forced into most of these interventions - that I threatened her with lawsuit to comply with interventions. Has currently been counselled on pain management options and has interest in KENNEY - but not yet. HTN noted up to 180s/70-80s - responded to 20 mg labetolol. 06/26/18 02:32 Pt much more comfortable with KENNEY in place. She states she is able to rest now. Denies any pain. Objective: 06/25/18 11:30 06/25/18 11:30 Patient ABO/Rh O POSITIVE 06/24/18 23:04 Uric Acid 5.0 mg/dL (2.5-6.8) 06/25/18 11:30 Total Bilirubin 0.5 mg/dL (0.1-1.4) 06/24/18 23:04 Conjugated Bilirubin 0.2 mg/dL (0.0-0.5) 06/24/18 23:04 Unconjugated Bilirubin 0.3 mg/dL (0.0-1.1) 06/24/18 23:04 AST 23 IU/L (14-46) 06/25/18 11:30 ALT 28 IU/L (9-52) 06/25/18 11:30 Lactate Dehydrogenase 530 IU/L (313-618) 06/25/18 11:30 Temp Pulse Resp BP Pulse Ox 86 179/85 H 06/25/18 14:43 06/25/18 14:43 - SVE Membranes: AROM Amniotic Fluid Color: Bloody (Small amount, head well-engaged) - Contraction Pattern Assessment Current Contraction Pattern: Regular (having mild ctxns by IUPC on 3 mu/min) - FHR Assessment Naylor FHR (bpm): 130 FHR Pattern Variability: Moderate FHR Category: 2 (variable decels noted, amnioinfusion started) - Procedures Non-surgical Procedures: Amniotomy Oxytocin Orders Assessment - Pre-Induction/Augmentation Assessment Gestational Age: 42 week(s) and 4 day(s) ICD10 Worksheet Patient Problems: Problems Problem Status Onset Oligohydramnios Acute Post term at 42 weeks gestation Acute Preeclampsia Acute Uterine fibroids affecting Acute
[2018-06-26] MEDS: SENNOSIDES/DOCUSATE SODIUM TAB PO SCH ×2 (03:44→10:47)
[2018-06-26] MEDS: FAMOTIDINE 20 MG/NACL 50 ML IV SCH ×2 (06:09→10:47)
--- NOTE | 2018-06-26 07:07 | OBPROG ---
Labor Progress Note Assessment/Plan: Assessment: IUP at 42w6d - induction for oligohydramnios, postdates, preeclampsia, AMA *preeclampsia -- magnesium - 2 gm/hr, clear lungs, minimal DTRs, labs x2 stable - normal *OUTS - frey with adeq output - more than 40 cc/hr, concentrated, INS - 100cc/ hr plus pit - now on 18mu/min *Thick meconium started in middle of night - 2 episodes of deep variables - improved by amnioinfusion o/w moderate *AMA *KENNEY - has been giving pt relief *LGA - palpably large baby - EFW by art 8 09/05-9 # *uterine fibroids - largest 8 cm in rt mid uterus induction - pt allowed AROM approx 3 am on 06/25, on pitocin, slowly (per pt) increasing to 18 mu/min, IUPC max MVUs 130s Yesterday discussed pt's noncompliance with Nina Whitney, [facility] atty and had to threaten court order to get compliance with BP eval, mag, pitocin, monitoring. Pt has felt forced into all activity/monitoring which has resulted in higher stress for her and blood pressure issues that are all from our external negativity. *Antenatally - MFM had concern over increased CSP size - had head MRI - neg and normal echo Plan: exam just repeated by Jillian and has shown change to /-1. We will cont current 06/25/18 10:55 06/25/18 16:09 06/25/18 17:25 06/25/18 22:18 06/26/18 06:42 Subjective/Intrapartum Course: Steffi has thus far been declining antihypertensives and our recommendation for bedrest given her elevated BP's. She is declining magnesium sulfate. I had another long talk with her and made a deal that we could intermittently check her blood pressures and treat if she had two consecutive pressures that were > 160/110. Also accepts moving from the tub to the bed for an exam and AROM if she's more favorable. Steffi is not agreeable to cont EFM or serial BP's. She is in the tub and will allow for doppler of FHTs, but states they make the baby move and make her in more pain. Steffi is now agreeable to cont EFM and serial BP's along with magnesium sulfate. Steffi Tre, spoke with pt in great detail about risks and pt agrees to proceed with recommendations by Steffi Toledo. Desires CNM to be present and manage care for labor and . 06/25/18 18:12 The patient has now agreed to IUPC and FSE through the brake rider, PS. Also now has a frey as she couldn't urinate - good UOP . Just now had significant decel with a contraction and has allowed amnioinfusion - just rec'd bolus - FHTs appear better with baseline 140s 06/25/18 19:57 Steffi has been in multiple positions and is having hard time managing pain with contractions. She does not like the internal monitors but understands importance. Her and partner have voiced concerns re: possible c/s. I discussed that at this time c/s is not indicated and reviewed when c/s would be indicated. Offered Steffi Toledo to come review B/R/A and to obtain consent, pt declines. 06/25/18 22:22 Pt continues to feel forced into most of these interventions - that I threatened her with lawsuit to comply with interventions. Has currently been counselled on pain management options and has interest in KENNEY - but not yet. HTN noted up to 180s/70-80s - responded to 20 mg labetolol. 06/26/18 02:32 Pt much more comfortable with KENNEY in place. She states she is able to rest now. Denies any pain. 06/26/18 07:21 Pt was able to rest with KENNEY. Jillian CNM just visited with pt - she requested I not enter room. Cx exam is improved and much softer/thin/stretchy /-1, no caput - per Jillian, the ischial spines are tight. Objective: 06/25/18 11:30 06/25/18 11:30 Patient ABO/Rh O POSITIVE 06/24/18 23:04 Uric Acid 5.0 mg/dL (2.5-6.8) 06/25/18 11:30 Total Bilirubin 0.5 mg/dL (0.1-1.4) 06/24/18 23:04 Conjugated Bilirubin 0.2 mg/dL (0.0-0.5) 06/24/18 23:04 Unconjugated Bilirubin 0.3 mg/dL (0.0-1.1) 06/24/18 23:04 AST 23 IU/L (14-46) 06/25/18 11:30 ALT 28 IU/L (9-52) 06/25/18 11:30 Lactate Dehydrogenase 530 IU/L (313-618) 06/25/18 11:30 Temp Pulse Resp BP Pulse Ox 86 179/85 H 06/25/18 14:43 06/25/18 14:43 - SVE Dilation (cm): 7 Effacement (%): 90 Station: -1 Membranes: AROM Amniotic Fluid Color: Thick Meconium, Bloody (Small amount, head well-engaged) - Contraction Pattern Assessment Current Contraction Pattern: Regular (by IUPC max MVUs 130, up to 18mu/min) - FHR Assessment Naylor FHR (bpm): 130 FHR Pattern Variability: Moderate FHR Category: 1 (moderate variability, accels, infreq variables - small since approx 2:30a) - Procedures Non-surgical Procedures: Amniotomy Oxytocin Orders Assessment - Pre-Induction/Augmentation Assessment Gestational Age: 42 week(s) and 4 day(s) ICD10 Worksheet Patient Problems: Problems Problem Status Onset Oligohydramnios Acute Post term at 42 weeks gestation Acute Preeclampsia Acute Uterine fibroids affecting Acute - ICD10 Problem Qualifiers (1) Preeclampsia (2) Uterine fibroids affecting
--- NOTE | 2018-06-26 07:19 | OBPROG ---
Labor Progress Note Assessment/Plan: Assessment: 48yo with IUP @ 42w5d preeclampsia- on Magnesium sulfate AMA uterine fibroids induction - pitocin @ 18mU Cat 2 FHR tracing Amnioinfusion KENNEY Plan: reassess 2-4hr PRN Cont pitocin augmentation cont amnioinfusion (bolus) Cont to allow MD to manage care at this time CNM will provide support for labor and delivery. Steffi Toledo agrees with plan of care 06/26/18 07:20 Subjective/Intrapartum Course: Steffi has thus far been declining antihypertensives and our recommendation for bedrest given her elevated BP's. She is declining magnesium sulfate. I had another long talk with her and made a deal that we could intermittently check her blood pressures and treat if she had two consecutive pressures that were > 160/110. Also accepts moving from the tub to the bed for an exam and AROM if she's more favorable. Steffi is not agreeable to cont EFM or serial BP's. She is in the tub and will allow for doppler of FHTs, but states they make the baby move and make her in more pain. Steffi is now agreeable to cont EFM and serial BP's along with magnesium sulfate. Steffi Toledo, spoke with pt in great detail about risks and pt agrees to proceed with recommendations by Steffi Toledo. Desires CNM to be present and manage care for labor and . 06/25/18 18:12 The patient has now agreed to IUPC and FSE through the licensed direct entry midwife, PS. Also now has a frey as she couldn't urinate - good UOP . Just now had significant decel with a contraction and has allowed amnioinfusion - just rec'd bolus - FHTs appear better with baseline 140s 06/25/18 19:57 Steffi has been in multiple positions and is having hard time managing pain with contractions. She does not like the internal monitors but understands importance. Her and partner have voiced concerns re: possible c/s. I discussed that at this time c/s is not indicated and reviewed when c/s would be indicated. Offered tSeffi Toledo to come review B/R/A and to obtain consent, pt declines. 06/25/18 22:22 Pt continues to feel forced into most of these interventions - that I threatened her with lawsuit to comply with interventions. Has currently been counselled on pain management options and has interest in KENNEY - but not yet. HTN noted up to 180s/70-80s - responded to 20 mg labetolol. 06/26/18 02:32 Pt much more comfortable with KENNEY in place. She states she is able to rest now. Denies any pain. 06/26/18 07:19 Pt comfortable with KENNEY. She was able to rest some. Denies any pain or pressure. Objective: 06/25/18 11:30 06/25/18 11:30 Patient ABO/Rh O POSITIVE 06/24/18 23:04 Uric Acid 5.0 mg/dL (2.5-6.8) 06/25/18 11:30 Total Bilirubin 0.5 mg/dL (0.1-1.4) 06/24/18 23:04 Conjugated Bilirubin 0.2 mg/dL (0.0-0.5) 06/24/18 23:04 Unconjugated Bilirubin 0.3 mg/dL (0.0-1.1) 06/24/18 23:04 AST 23 IU/L (14-46) 06/25/18 11:30 ALT 28 IU/L (9-52) 06/25/18 11:30 Lactate Dehydrogenase 530 IU/L (313-618) 06/25/18 11:30 Temp Pulse Resp BP Pulse Ox 86 179/85 H 06/25/18 14:43 06/25/18 14:43 - SVE Dilation (cm): 7 Effacement (%): 90 Station: -1 Membranes: AROM Amniotic Fluid Color: Meconium Stained, Thick Meconium, Bloody (Small amount, head well-engaged) - Contraction Pattern Assessment Current Contraction Pattern: Regular (having mild ctxns by IUPC on 3 mu/min) - FHR Assessment Naylor FHR (bpm): 120 FHR Pattern Variability: Minimal, Moderate FHR Category: 2 - Procedures Non-surgical Procedures: Amniotomy, FSE, IUPC Oxytocin Orders Assessment - Pre-Induction/Augmentation Assessment Gestational Age: 42 week(s) and 4 day(s) ICD10 Worksheet Patient Problems: Problems Problem Status Onset Oligohydramnios Acute Post term at 42 weeks gestation Acute Preeclampsia Acute Uterine fibroids affecting Acute
[2018-06-26] MEDS: Mag Sulf 500 ML IV SCH (07:44)
[2018-06-26] MEDS ORDERED: fentaNYL 100 MCG/2 ML INJ ONE (09:40)
[2018-06-26] MEDS ORDERED: BUPIVACAINE 0.25% 30 ML SDV ONE (09:41)
--- NOTE | 2018-06-26 09:56 | OBPROG ---
Labor Progress Note Assessment/Plan: Assessment: Plan: Subjective/Intrapartum Course: Steffi has thus far been declining antihypertensives and our recommendation for bedrest given her elevated BP's. She is declining magnesium sulfate. I had another long talk with her and made a deal that we could intermittently check her blood pressures and treat if she had two consecutive pressures that were > 160/110. Also accepts moving from the tub to the bed for an exam and AROM if she's more favorable. Steffi is not agreeable to cont EFM or serial BP's. She is in the tub and will allow for doppler of FHTs, but states they make the baby move and make her in more pain. Steffi is now agreeable to cont EFM and serial BP's along with magnesium sulfate. Steffi Tre, spoke with pt in great detail about risks and pt agrees to proceed with recommendations by Steffi Toledo. Desires CNM to be present and manage care for labor and . 06/25/18 18:12 The patient has now agreed to IUPC and FSE through the varnish finisher, PS. Also now has a frey as she couldn't urinate - good UOP . Just now had significant decel with a contraction and has allowed amnioinfusion - just rec'd bolus - FHTs appear better with baseline 140s 06/25/18 19:57 Steffi has been in multiple positions and is having hard time managing pain with contractions. She does not like the internal monitors but understands importance. Her and partner have voiced concerns re: possible c/s. I discussed that at this time c/s is not indicated and reviewed when c/s would be indicated. Offered Steffi Toledo to come review B/R/A and to obtain consent, pt declines. 06/25/18 22:22 Pt continues to feel forced into most of these interventions - that I threatened her with lawsuit to comply with interventions. Has currently been counselled on pain management options and has interest in KENNEY - but not yet. HTN noted up to 180s/70-80s - responded to 20 mg labetolol. 06/26/18 02:32 Pt much more comfortable with KENNEY in place. She states she is able to rest now. Denies any pain. 06/26/18 07:21 Pt was able to rest with KENNEY. Jillian BLAKE just visited with pt - she requested I not enter room. Cx exam is improved and much softer/thin/stretchy /-1, no caput - per Jillian, the ischial spines are tight. 06/26/18 09:50 In to see patient to check on her comfort. Pt is feeling more uncomfortable with contractions. She requests anesthesia consult for bolus. Objective: 06/25/18 11:30 06/25/18 11:30 Patient ABO/Rh O POSITIVE 06/24/18 23:04 Uric Acid 5.0 mg/dL (2.5-6.8) 06/25/18 11:30 Total Bilirubin 0.5 mg/dL (0.1-1.4) 06/24/18 23:04 Conjugated Bilirubin 0.2 mg/dL (0.0-0.5) 06/24/18 23:04 Unconjugated Bilirubin 0.3 mg/dL (0.0-1.1) 06/24/18 23:04 AST 23 IU/L (14-46) 06/25/18 11:30 ALT 28 IU/L (9-52) 06/25/18 11:30 Lactate Dehydrogenase 530 IU/L (313-618) 06/25/18 11:30 Group B Strep DNA NEGATIVE (NEGATIVE) 06/25/18 12:37 Temp Pulse Resp BP Pulse Ox 86 179/85 H 06/25/18 14:43 06/25/18 14:43 - SVE Amniotic Fluid Color: Thick Meconium, Bloody (Small amount, head well-engaged) - Contraction Pattern Assessment Current Contraction Pattern: Regular (by IUPC max MVUs 130, up to 18mu/min) - FHR Assessment Naylor FHR (bpm): 125 FHR Pattern Variability: Moderate FHR Category: 2 (variable decel) - Procedures Non-surgical Procedures: Amniotomy Oxytocin Orders Assessment - Pre-Induction/Augmentation Assessment Gestational Age: 42 week(s) and 4 day(s) ICD10 Worksheet Patient Problems: Problems Problem Status Onset Oligohydramnios Acute Post term at 42 weeks gestation Acute Preeclampsia Acute Uterine fibroids affecting Acute
[2018-06-26] MEDS: LABETALOL HCL 200 MG TAB PO SCH ×2 (11:01→11:02)
[2018-06-26] MEDS ORDERED: ACETAMINOPHEN 650 MG/20.3 ML UDCUP PO PRN (11:25)
--- NOTE | 2018-06-26 11:28 | OBPROG ---
Labor Progress Note Assessment/Plan: Assessment: 48 y/o @ 42 6/7 weeks for IOL secondary to oligo, postdates, preeclampsia and AMA Plan: Cont MgSO4 - 2 gm/hr; pt is stable Will give Tylenol ES for current DURANT Pt may have clear liquids, but not anything solid at this time BPs labile 90-175/62-91, last two BPs 164/78 and 144/75; last dose of Labetalol given 07/26 @2149; PIH labs x2 normal, pending this am There was adequate urine output overnight, greater than 40 cc/hr, but now over the past 2 hours has been 25cc/hr, still concentrated Pt getting 100cc/hr plus Pitocin at 18mu/min Uterine fibroids - largest 8 cm in rt mid uterus, will monitor for bleeding after delivery AROM at 3 am on 06/25, thick meconium overnight and now amnioinfusion with resolution of deep variable decels FHTs - Cat II strip with intermittent mild variable decels, reassuring; cont to closely monitor GBS cx 06/25 is negative Will have pt labor down and then start pushing 06/26/18 11:46 Subjective/Intrapartum Course: Steffi has thus far been declining antihypertensives and our recommendation for bedrest given her elevated BP's. She is declining magnesium sulfate. I had another long talk with her and made a deal that we could intermittently check her blood pressures and treat if she had two consecutive pressures that were > 160/110. Also accepts moving from the tub to the bed for an exam and AROM if she's more favorable. Steffi is not agreeable to cont EFM or serial BP's. She is in the tub and will allow for doppler of FHTs, but states they make the baby move and make her in more pain. Steffi is now agreeable to cont EFM and serial BP's along with magnesium sulfate. Steffi Toledo, spoke with pt in great detail about risks and pt agrees to proceed with recommendations by Steffi Toledo. Desires CNM to be present and manage care for labor and . 06/25/18 18:12 The patient has now agreed to IUPC and FSE through the continuous process rotary drum tanner, PS. Also now has a frey as she couldn't urinate - good UOP . Just now had significant decel with a contraction and has allowed amnioinfusion - just rec'd bolus - FHTs appear better with baseline 140s 06/25/18 19:57 Steffi has been in multiple positions and is having hard time managing pain with contractions. She does not like the internal monitors but understands importance. Her and partner have voiced concerns re: possible c/s. I discussed that at this time c/s is not indicated and reviewed when c/s would be indicated. Offered Steffi Toledo to come review B/R/A and to obtain consent, pt declines. 06/25/18 22:22 Pt continues to feel forced into most of these interventions - that I threatened her with lawsuit to comply with interventions. Has currently been counselled on pain management options and has interest in KENNEY - but not yet. HTN noted up to 180s/70-80s - responded to 20 mg labetolol. 06/26/18 02:32 Pt much more comfortable with KENNEY in place. She states she is able to rest now. Denies any pain. 06/26/18 07:21 Pt was able to rest with KENNEY. Jillian BLAKE just visited with pt - she requested I not enter room. Cx exam is improved and much softer/thin/stretchy /-1, no caput - per Jillian, the ischial spines are tight. 06/26/18 09:50 In to see patient to check on her comfort. Pt is feeling more uncomfortable with contractions. She requests anesthesia consult for bolus. 06/26/18 11:42 Pt has been sleeping most of the morning. Pt seen and examined. Pt is c/o DURANT this am and would like something to eat and drink. She was having b/l lower abd pain that is relieved now, s/p rebolus. Denies any visual changes or RUQ/ epigastric pain. Does note heartburn. Good FM noted. Objective: 06/25/18 11:30 06/25/18 11:30 Patient ABO/Rh O POSITIVE 06/24/18 23:04 Uric Acid 5.0 mg/dL (2.5-6.8) 06/25/18 11:30 Total Bilirubin 0.5 mg/dL (0.1-1.4) 06/24/18 23:04 Conjugated Bilirubin 0.2 mg/dL (0.0-0.5) 06/24/18 23:04 Unconjugated Bilirubin 0.3 mg/dL (0.0-1.1) 06/24/18 23:04 AST 23 IU/L (14-46) 06/25/18 11:30 ALT 28 IU/L (9-52) 06/25/18 11:30 Lactate Dehydrogenase 530 IU/L (313-618) 06/25/18 11:30 Group B Strep DNA NEGATIVE (NEGATIVE) 06/25/18 12:37 Temp Pulse Resp BP Pulse Ox 86 179/85 H 06/25/18 14:43 06/25/18 14:43 - SVE Dilation (cm): 10 Effacement (%): 100 Station: +2 Membranes: AROM Amniotic Fluid Color: Thick Meconium, Bloody (Small amount, head well-engaged) - Contraction Pattern Assessment Current Contraction Pattern: Regular (q 3min) - FHR Assessment Naylor FHR (bpm): 130 FHR Pattern Variability: Moderate FHR Category: 2 (intermittent variable decels with brittney to 100 bpm) - Procedures Non-surgical Procedures: Amniotomy - Physical Exam General Appearance: WD/WN, alert, no apparent distress Respiratory: lungs clear Cardiac/Chest: regular rate, rhythm Abdomen: soft, other (gravid) Extremities: non-tender, normal inspection DTR- Lower Extremities: Plantar (R): 1+, Plantar (L): 1+ Skin: normal color, warm/dry Neuro/Psych: alert, normal mood/affect, oriented x 3 Oxytocin Orders Assessment - Pre-Induction/Augmentation Assessment Gestational Age: 42 week(s) and 4 day(s) ICD10 Worksheet Patient Problems: Problems Problem Status Onset Oligohydramnios Acute Post term at 42 weeks gestation Acute Preeclampsia Acute Uterine fibroids affecting Acute
[2018-06-26] MEDS ORDERED: ACETAMINOPHEN 325 MG TAB ONE (12:27)
[2018-06-26 12:57] LABS: PLATELET COUNT 189 10^3/uL (150-400)
[2018-06-26] MEDS ORDERED: ACETAMINOPHEN 325 MG TAB PO ONE (13:00)
[2018-06-26] MEDS ORDERED: ACETAMINOPHEN 325 MG TAB PO PRN (15:30)
--- NOTE | 2018-06-26 16:24 | OBDEL ---
Info Type: Vaginal Presentation at Delivery: Vertex (Direct OA) L&D Analgesia/Anesthesia Type: Epidural GBS+: No Intrapartum Medications: Generic Name Dose Route Start Last Admin Trade Name Donna PRN Reason Stop Dose Admin Calcium Carbonate 500 mg 06/25/18 14:18 06/25/18 22:15 Tums PO 12/22/18 14:17 500 mg TID PRN Administration Indigestion Magnesium Sulfate 500 mls @ 50 mls/hr 06/25/18 11:00 06/26/18 07:44 Magnesium Sulfate 20 Gm/ 500 Ml (Premix) IV 12/22/18 10:59 500 mls CONT NIR Administration Oxytocin/Lactated Ringer's 500 mls @ 0 mls/hr 06/25/18 11:00 06/25/18 12:07 Pitocin 30 Units/Lr (Premix) IV 12/22/18 10:59 500 mls CONT NIR Administration Protocol Per Protocol Famotidine/Sodium Chloride 50 mls @ 200 mls/hr 06/25/18 14:30 06/26/18 10:47 Pepcid 20 Mg (Premix) IV 12/22/18 14:29 Not Given Q12HRS NIR Lactated Ringer's 500 mls @ 0 mls/hr 06/26/18 01:30 06/26/18 02:18 Lr IV 12/23/18 01:29 500 mls CONT NRI Administration As Directed Magnesium Hydroxide 30 ml 06/25/18 09:08 06/25/18 09:23 Milk Of Magnesia PO 12/22/18 09:07 30 ml DAILY PRN Administration Constipation Protocol Senna/Docusate Sodium 1 - 2 tab 06/25/18 21:00 06/26/18 10:47 Senokot-S PO 12/22/18 20:59 Not Given BID NIR Protocol Discontinued Medications Generic Name Dose Route Start Last Admin Trade Name Donna PRN Reason Stop Dose Admin Acetaminophen 650 mg 06/26/18 13:00 06/26/18 13:45 Tylenol PO 06/26/18 13:01 650 mg ONCE ONE Administration Lactated Ringer's 1,000 mls @ 0 mls/hr 06/24/18 17:47 06/25/18 09:24 Lr IV 06/25/18 17:46 1,000 mls PRN PRN Administration SEE PROTOCOL CONDITIONS Protocol Per Protocol Magnesium Sulfate 100 mls @ 200 mls/hr 06/25/18 10:46 06/25/18 11:33 Magnesium Sulf 4 Gm (Premix) IV 06/25/18 11:15 100 mls ONCE ONE Administration Labetalol HCl 200 mg 06/25/18 09:00 06/26/18 11:02 Trandate PO 12/22/18 08:59 Not Given TID NIR Labetalol HCl 10 mg 06/25/18 14:16 06/25/18 14:43 Trandate Injection IVP 06/25/18 14:17 10 mg ONCE ONE Administration Labetalol HCl 10 mg 06/25/18 21:08 06/25/18 21:19 Trandate Injection IVP 06/25/18 21:09 10 mg ONCE ONE Administration Labetalol HCl 20 mg 06/25/18 21:41 06/25/18 21:49 Trandate Injection IVP 06/25/18 21:42 20 mg ONCE ONE Administration - Infant Care Provider Flight Hostess/INVENTORY CHECKER: Adeola Foss - Hospital Course Intrapartum: Steffi has thus far been declining antihypertensives and our recommendation for bedrest given her elevated BP's. She is declining magnesium sulfate. I had another long talk with her and made a deal that we could intermittently check her blood pressures and treat if she had two consecutive pressures that were > 160/110. Also accepts moving from the tub to the bed for an exam and AROM if she's more favorable. Steffi is not agreeable to cont EFM or serial BP's. She is in the tub and will allow for doppler of FHTs, but states they make the baby move and make her in more pain. Steffi is now agreeable to cont EFM and serial BP's along with magnesium sulfate. Steffi Toledo, spoke with pt in great detail about risks and pt agrees to proceed with recommendations by Steffi Toledo. Desires CNM to be present and manage care for labor and . 06/25/18 18:12 The patient has now agreed to IUPC and FSE through the bolt man, PS. Also now has a frey as she couldn't urinate - good UOP . Just now had significant decel with a contraction and has allowed amnioinfusion - just rec'd bolus - FHTs appear better with baseline 140s 06/25/18 19:57 Steffi has been in multiple positions and is having hard time managing pain with contractions. She does not like the internal monitors but understands importance. Her and partner have voiced concerns re: possible c/s. I discussed that at this time c/s is not indicated and reviewed when c/s would be indicated. Offered Steffi Toledo to come review B/R/A and to obtain consent, pt declines. 06/25/18 22:22 Pt continues to feel forced into most of these interventions - that I threatened her with lawsuit to comply with interventions. Has currently been counselled on pain management options and has interest in KENNEY - but not yet. HTN noted up to 180s/70-80s - responded to 20 mg labetolol. 06/26/18 02:32 Pt much more comfortable with KENNEY in place. She states she is able to rest now. Denies any pain. 06/26/18 07:21 Pt was able to rest with KENNEY. Jillian BLAKE just visited with pt - she requested I not enter room. Cx exam is improved and much softer/thin/stretchy /-1, no caput - per Jillian, the ischial spines are tight. 06/26/18 09:50 In to see patient to check on her comfort. Pt is feeling more uncomfortable with contractions. She requests anesthesia consult for bolus. 06/26/18 11:42 Pt has been sleeping most of the morning. Pt seen and examined. Pt is c/o DURANT this am and would like something to eat and drink. She was having b/l lower abd pain that is relieved now, s/p rebolus. Denies any visual changes or RUQ/ epigastric pain. Does note heartburn. Good FM noted. Indications for Delivery: Postterm Unfavorable Cervix (AMA), Oligohydramnios, Preeclampsia Severe Vaginal Delivery - Delivery Provider Delivery Physician/CNM: Kari Gonzales - Labor and Delivery Onset of Contractions Date: 06/25/18 Onset of Contractions Time: 12:00 Onset of Contractions Type: Induced Rupture of Membranes Date: 06/25/18 Rupture of Membranes Time: 02:47 Rupture of Membranes Type: Artificial Amniotic Fluid Color: Thick Meconium, Bloody (Small amount, head well-engaged) Dilation Complete Date: 06/26/18 Dilation Complete Time: 11:15 Placenta Delivery Date: 06/26/18 Placenta Delivery Time: 15:58 Total Hours of Labor: 27 Non-surgical Procedures: Amniotomy Laceration: 2nd Degree Repair: 3-0, Vicryl Vaginal Sponge Count Correct: Yes Vaginal Needle Count Correct: Yes Vaginal Sweep Performed: Yes EBL: 800 cc and another 200 cc blood/clots noted on trisha in bed after fundal ch Delivery Events: Post Hemorrhage (Brisk bleeding noted secondary to uterine atony. Pitocin wide open and 1000 mcg Cytotec given IL. Uterus became firm and bleeding slowed down.), Retained Placenta (Manual extraction of intact placenta with 3-vc) Delivery Comment: A viable female born over intact perineum at 1538 with 7 and 8 Apgars in direct OA position. No nuchal cord noted. Baby girl on maternal abdomen. Delayed cord clamping x 60 sec. Cord clamped x 2 and then cut. Cord gases and blood obtained. Waited 20 min for placenta to be delivered and appeared to be retained, did not want to avulse the cord so at this time placenta was delivered manually intact with 3-vc. Meconium-stained placenta noted and sent to pathology. Perineum inspected and revealed 2 degree lac which was repaired with 3-0 vicryl. FF at umbilicus at end of repair. Pt was cleaned and bedside u/ s performed showing no retained placenta. Called into patients room, about another 200 cc blood and clots were noted during fundal check by RN. Fundus noted to be firm one above the umbilicus at this time. Patient's BP 83/50, fluid bolus given 500 cc LR with improvement of BP to 99/61 and then 111/68. A second line was placed. Pt stable as I left the room. Baby girl to NICU for respiratory issues, requiring oxygen. Cord Gases: Cord Gases Cord Blood PCO2 48.0 mmHg (37-60) 06/26/18 15:44 Cord Base Excess -3.9 mEq/L (-13.6--3.2) 06/26/18 15:44 Cord ABG pH 7.30 (7.10-7.37) 06/26/18 15:44 Cord VBG pH 7.37 (7.20-7.42) 06/26/18 15:44 - Medications Labor Augmentation/Induction Methods Used: Pitocin, Misoprostol Labor Augmentation/Induction Indication: Post Dates (AMA, preeclampsia, oligo) Operative Report - Delivery Cord Gases: Cord Gases Cord Blood PCO2 48.0 mmHg (37-60) 06/26/18 15:44 Cord Base Excess -3.9 mEq/L (-13.6--3.2) 06/26/18 15:44 Cord ABG pH 7.30 (7.10-7.37) 06/26/18 15:44 Cord VBG pH 7.37 (7.20-7.42) 06/26/18 15:44 Data WESTLEY: 06/06/18 Gestational Age: 42 week(s) and 6 day(s) Naylor Delivery Date: 06/26/18 Delivery Time: 15:38 Sex of : Female Score (1 Min): 7 Score (5 Min): 8 ICD10 Worksheet Patient Problems: Problems Problem Status Onset Meconium stained amniotic fluid, delivered, current hospitalization Acute Oligohydramnios Acute PPH ( hemorrhage) Acute Post term at 42 weeks gestation Acute Preeclampsia Acute (spontaneous vaginal delivery) Acute Uterine fibroids affecting Acute - ICD10 Problem Qualifiers (1) Meconium stained amniotic fluid, delivered, current hospitalization (2) (spontaneous vaginal delivery) (3) PPH ( hemorrhage)
--- NOTE | 2018-06-26 16:25 | ASMTCMCOM ---
CM Note CM Note Notes: Patient's baby was born at 3:38 (15;38) today and the child is in the NICU. Mom is being watched for ongoing problems with blood pressure. Per and shift supervisor, ODALYS to follow up with the family tomorrow.CM will follow. Date Signed: 06/26/2018 04:25 PM Electronically Signed By:Ariana Charles LCSW
[2018-06-26] MEDS ORDERED: TRANEXAMIC ACID 1,000 MG in NS 100 ML IV ONE (17:30)
[2018-06-26] MEDS: ACETAMINOPHEN 325 MG TAB PO SCH (19:03)
[2018-06-26] MEDS: CALCIUM CARBONATE 500 MG CHEWABLE TAB PO PRN (22:32)
[2018-06-27] MEDS: IBUPROFEN 600 MG TAB PO SCH ×4 (02:33→16:37)
[2018-06-27] MEDS: FAMOTIDINE 20 MG/NACL 50 ML IV SCH ×2 (02:33→08:59)
[2018-06-27] MEDS: ACETAMINOPHEN 325 MG TAB PO SCH ×4 (02:33→16:37)
[2018-06-27] MEDS: SENNOSIDES/DOCUSATE SODIUM TAB PO SCH ×3 (02:34→20:52)
[2018-06-27] MEDS: MISOPROSTOL 100 MCG TAB PO SCH ×2 (02:37→02:38)
[2018-06-27] MEDS: Mag Sulf 500 ML IV SCH (03:48)
--- NOTE | 2018-06-27 08:28 | OBPP ---
Progress Note Assessment/Plan: Assessment: 48 yo now (h/o SAB in 2012) now PPD1 s/p complicated by retained placenta requiring manual extraction and PPH of 1000cc. Induced at 42w5d due to AMA, know large (8cm largest) intramural uterine fibroids, and new diagnoses of oligohydramnios and pre-eclampsia with severe features. Now of 24hrs of PP magnesium. Preeclampsia with severe features: - Diuresing well, BPs normal to mild range, no new/evolving sx. Mag off at 1500. No repeat labs in pressures are stable. - Hct excpected drop this AM - will see how symptomatic she is once she's up and around w/ regard to transfusion, etc. - Pain controlled, lochia appropriate. Baby doing well. - Likely home tomorrow vs Monday. JM Subjective/ Course: Steffi is doing pretty good this AM - still quite exhausted. BF going well, baby girl doing well. Excited to get off magnesium at 1500. No new s/sx of evolving PIH. Trying some breakfast. Objective: 06/27/18 06:05 06/26/18 12:35 Patient ABO/Rh O POSITIVE 06/24/18 23:04 Uric Acid 6.4 mg/dL (2.5-6.8) 06/26/18 12:35 Total Bilirubin 0.6 mg/dL (0.1-1.4) 06/26/18 12:35 Conjugated Bilirubin 0.2 mg/dL (0.0-0.5) 06/26/18 12:35 Unconjugated Bilirubin 0.4 mg/dL (0.0-1.1) 06/26/18 12:35 AST 23 IU/L (14-46) 06/26/18 12:35 ALT 28 IU/L (9-52) 06/26/18 12:35 Lactate Dehydrogenase 583 IU/L (313-618) 06/26/18 12:35 Group B Strep DNA NEGATIVE (NEGATIVE) 06/25/18 12:37 Temp Pulse Resp BP Pulse Ox 86 179/85 H 06/25/18 14:43 06/25/18 14:43 Most recent BP's: 130's-140's/70's-80's Intake and Output 06/26/18 06/27/18 06/27/18 17:59 05:59 17:59 Intake Total 300 880 Output Total 275 1000 930 Balance 25 -1000 -50 Intake: Oral (ml) 480 IV Intake (ml) 300 400 Output: Urine (ml) 275 930 Catheter 275 930 Estimated Blood Loss (ml) 1000 Other: Intake Quantity Yes Sufficient LABORATORY 06/27/18 06/26/18 06/26/18 06:05 15:44 12:35 WBC RBC Hgb Hct 23.9 % L % (38.0-47.0) MCV MCH MCHC RDW Plt Count MPV Neut % (Auto) Lymph % (Auto) [place] % (Auto) Eos % (Auto) Baso % (Auto) Nucleat RBC Rel Count Absolute Neuts (auto) Absolute Lymphs (auto) Absolute Monos (auto) Absolute Eos (auto) Absolute Basos (auto) Absolute Nucleated RBC Immature Gran % Seg Neutrophils % Band Neutrophils % Lymphocytes % Monocytes % Eosinophils % Basophils % Metamyelocytes % Myelocytes % Promyelocytes % Blast Cells % Immature Gran # Absolute Seg Neuts Absolute Band Neuts Absolute Lymphocytes Absolute Monocytes Absolute Eosinophils Absolute Basophils Absolute Metamyelocyte Absolute Myelocytes Absolute Promyelocytes Absolute Plasma Cells Nucleated RBCs Absolute Blast Cells Plasma Cells % Platelet Estimate Cord Blood PCO2 48.0 mmHg mmHg (37-60) Cord Base Excess -3.9 mEq/L mEq/L (-13.6--3.2) Cord ABG pH 7.30 (7.10-7.37) Cord VBG pH 7.37 (7.20-7.42) BUN Creatinine Estimated GFR Uric Acid Total Bilirubin Conjugated Bilirubin Unconjugated Bilirubin AST ALT Lactate Dehydrogenase Ur Random Creatinine 102.3 mg/dL mg/dL U Random Total Protein 81 mg/dL H mg/dL (0-11) Group B Strep DNA Patient ABO/Rh Antibody Screen 06/26/18 06/26/18 06/25/18 12:35 12:35 12:37 WBC 24.33 10^3/uL H 10^3/uL (3.80-9.50) RBC 4.16 10^6/uL L 10^6/uL (4.18-5.33) Hgb 12.7 g/dL g/dL (12.6-16.3) Hct 36.8 % L % (38.0-47.0) MCV 88.5 fL fL (81.5-99.8) MCH 30.5 pg pg (27.9-34.1) MCHC 34.5 g/dL g/dL (32.4-36.7) RDW 14.3 % % (11.5-15.2) Plt Count 189 10^3/uL 10^3/uL (150-400) MPV 11.4 fL fL (8.7-11.7) Neut % (Auto) Not Reported Lymph % (Auto) Not Reported [place] % (Auto) Not Reported Eos % (Auto) Not Reported Baso % (Auto) Not Reported Nucleat RBC Rel Count Not Reported Absolute Neuts (auto) Not Reported Absolute Lymphs (auto) Not Reported Absolute Monos (auto) Not Reported Absolute Eos (auto) Not Reported Absolute Basos (auto) Not Reported Absolute Nucleated RBC Not Reported Immature Gran % Not Reported Seg Neutrophils % 71.0 % % Band Neutrophils % 26.0 % % Lymphocytes % 0.0 % % Monocytes % 3.0 % % Eosinophils % 0.0 % % Basophils % 0.0 % % Metamyelocytes % 0.0 % % Myelocytes % 0.0 % % Promyelocytes % 0.0 % % Blast Cells % 0.0 % % Immature Gran # Not Reported Absolute Seg Neuts 17.27 10^3/uL H 10^3/uL (1.70-6.50) Absolute Band Neuts 6.33 10^3/uL H 10^3/uL (0.00-0.70) Absolute Lymphocytes 0.00 10^3/uL L 10^3/uL (1.00-3.00) Absolute Monocytes 0.73 10^3/uL 10^3/uL (0.30-0.80) Absolute Eosinophils 0.00 10^3/uL L 10^3/uL (0.03-0.40) Absolute Basophils 0.00 10^3/uL L 10^3/uL (0.02-0.10) Absolute Metamyelocyte 0.00 10^3/mL 10^3/mL (0.00-0.00) Absolute Myelocytes 0.00 10^3/mL 10^3/mL (0.00-0.00) Absolute Promyelocytes 0.00 10^3/uL 10^3/uL (0.00-0.00) Absolute Plasma Cells 0.00 10^3/uL 10^3/uL (0.00-0.00) Nucleated RBCs 0 /100 WBC /100 WBC (0-0) Absolute Blast Cells 0.00 10^3/uL 10^3/uL (0.00-0.00) Plasma Cells % 0.0 % % Platelet Estimate ADEQUATE (ADEQ) Cord Blood PCO2 Cord Base Excess Cord ABG pH Cord VBG pH BUN 13 mg/dL mg/dL (7-23) Creatinine 0.7 mg/dL mg/dL (0.6-1.0) Estimated GFR > 60 Uric Acid 6.4 mg/dL mg/dL (2.5-6.8) Total Bilirubin 0.6 mg/dL mg/dL (0.1-1.4) Conjugated Bilirubin 0.2 mg/dL mg/dL (0.0-0.5) Unconjugated Bilirubin 0.4 mg/dL mg/dL (0.0-1.1) AST 23 IU/L IU/L (14-46) ALT 28 IU/L IU/L (9-52) Lactate Dehydrogenase 583 IU/L IU/L (313-618) Ur Random Creatinine U Random Total Protein Group B Strep DNA NEGATIVE (NEGATIVE) Patient ABO/Rh Antibody Screen 06/25/18 06/25/18 06/24/18 11:30 11:30 23:04 WBC 16.78 10^3/uL H 10^3/uL (3.80-9.50) RBC 4.17 10^6/uL L 10^6/uL (4.18-5.33) Hgb 12.9 g/dL g/dL (12.6-16.3) Hct 36.7 % L % (38.0-47.0) MCV 88.0 fL fL (81.5-99.8) MCH 30.9 pg pg (27.9-34.1) MCHC 35.1 g/dL g/dL (32.4-36.7) RDW 14.2 % % (11.5-15.2) Plt Count 195 10^3/uL 10^3/uL (150-400) MPV 11.0 fL fL (8.7-11.7) Neut % (Auto) 83.9 % H % (39.3-74.2) Lymph % (Auto) 10.2 % L % (15.0-45.0) [place] % (Auto) 5.1 % % (4.5-13.0) Eos % (Auto) 0.0 % L % (0.6-7.6) Baso % (Auto) 0.1 % L % (0.3-1.7) Nucleat RBC Rel Count 0.0 % % (0.0-0.2) Absolute Neuts (auto) 14.07 10^3/uL H 10^3/uL (1.70-6.50) Absolute Lymphs (auto) 1.71 10^3/uL 10^3/uL (1.00-3.00) Absolute Monos (auto) 0.86 10^3/uL H 10^3/uL (0.30-0.80) Absolute Eos (auto) 0.00 10^3/uL L 10^3/uL (0.03-0.40) Absolute Basos (auto) 0.02 10^3/uL 10^3/uL (0.02-0.10) Absolute Nucleated RBC 0.00 10^3/uL 10^3/uL (0-0.01) Immature Gran % 0.7 % % (0.0-1.1) Seg Neutrophils % Band Neutrophils % Lymphocytes % Monocytes % Eosinophils % Basophils % Metamyelocytes % Myelocytes % Promyelocytes % Blast Cells % Immature Gran # 0.12 10^3/uL H 10^3/uL (0.00-0.10) Absolute Seg Neuts Absolute Band Neuts Absolute Lymphocytes Absolute Monocytes Absolute Eosinophils Absolute Basophils Absolute Metamyelocyte Absolute Myelocytes Absolute Promyelocytes Absolute Plasma Cells Nucleated RBCs Absolute Blast Cells Plasma Cells % Platelet Estimate Cord Blood PCO2 Cord Base Excess Cord ABG pH Cord VBG pH BUN 10 mg/dL mg/dL 9 mg/dL mg/dL (7-23) (7-23) Creatinine 0.6 mg/dL mg/dL 0.6 mg/dL mg/dL (0.6-1.0) (0.6-1.0) Estimated GFR > 60 > 60 Uric Acid 5.0 mg/dL mg/dL 4.5 mg/dL mg/dL (2.5-6.8) (2.5-6.8) Total Bilirubin 0.5 mg/dL mg/dL (0.1-1.4) Conjugated Bilirubin 0.2 mg/dL mg/dL (0.0-0.5) Unconjugated Bilirubin 0.3 mg/dL mg/dL (0.0-1.1) AST 23 IU/L IU/L 24 IU/L IU/L (14-46) (14-46) ALT 28 IU/L IU/L 32 IU/L IU/L (9-52) (9-52) Lactate Dehydrogenase 530 IU/L IU/L 504 IU/L IU/L (313-618) (313-618) Ur Random Creatinine U Random Total Protein Group B Strep DNA Patient ABO/Rh Antibody Screen 06/24/18 06/24/18 06/24/18 23:04 23:04 22:30 WBC 12.13 10^3/uL H 10^3/uL (3.80-9.50) RBC 4.15 10^6/uL L 10^6/uL (4.18-5.33) Hgb 12.8 g/dL g/dL (12.6-16.3) Hct 36.8 % L % (38.0-47.0) MCV 88.7 fL fL (81.5-99.8) MCH 30.8 pg pg (27.9-34.1) MCHC 34.8 g/dL g/dL (32.4-36.7) RDW 13.9 % % (11.5-15.2) Plt Count 213 10^3/uL 10^3/uL (150-400) MPV 11.1 fL fL (8.7-11.7) Neut % (Auto) 75.1 % H % (39.3-74.2) Lymph % (Auto) 18.5 % % (15.0-45.0) [place] % (Auto) 5.2 % % (4.5-13.0) Eos % (Auto) 0.2 % L % (0.6-7.6) Baso % (Auto) 0.3 % % (0.3-1.7) Nucleat RBC Rel Count 0.0 % % (0.0-0.2) Absolute Neuts (auto) 9.11 10^3/uL H 10^3/uL (1.70-6.50) Absolute Lymphs (auto) 2.25 10^3/uL 10^3/uL (1.00-3.00) Absolute Monos (auto) 0.63 10^3/uL 10^3/uL (0.30-0.80) Absolute Eos (auto) 0.02 10^3/uL L 10^3/uL (0.03-0.40) Absolute Basos (auto) 0.04 10^3/uL 10^3/uL (0.02-0.10) Absolute Nucleated RBC 0.00 10^3/uL 10^3/uL (0-0.01) Immature Gran % 0.7 % % (0.0-1.1) Seg Neutrophils % Band Neutrophils % Lymphocytes % Monocytes % Eosinophils % Basophils % Metamyelocytes % Myelocytes % Promyelocytes % Blast Cells % Immature Gran # 0.08 10^3/uL 10^3/uL (0.00-0.10) Absolute Seg Neuts Absolute Band Neuts Absolute Lymphocytes Absolute Monocytes Absolute Eosinophils Absolute Basophils Absolute Metamyelocyte Absolute Myelocytes Absolute Promyelocytes Absolute Plasma Cells Nucleated RBCs Absolute Blast Cells Plasma Cells % Platelet Estimate Cord Blood PCO2 Cord Base Excess Cord ABG pH Cord VBG pH BUN Creatinine Estimated GFR Uric Acid Total Bilirubin Conjugated Bilirubin Unconjugated Bilirubin AST ALT Lactate Dehydrogenase Ur Random Creatinine 42.7 mg/dL mg/dL U Random Total Protein 23 mg/dL H mg/dL (0-11) Group B Strep DNA Patient ABO/Rh O POSITIVE Antibody Screen NEGATIVE Temp Pulse Resp BP Pulse Ox 86 179/85 H 06/25/18 14:43 06/25/18 14:43 Uterine Position/Fundal Height: At Umbilicus Uterine Tone: Firm
--- NOTE | 2018-06-27 09:38 | PDPAINCON ---
Pain Management Consultation Patient referred by : Tre - Subjective Pain at rest (/10): 0 Pain with activity (/10): 0 Pain is: no pain at all Activity: able to ambulate - Objective Technique: continuous epidural Catheter site: clean, dry, intact, no erythema/edema/exudate Sensory and motor exam: block has resolved, no apparent ill effects - Assessment/Plan Additional comments: Block resolved. Pt reports thoracic back discomfort which she attributes to the KENNEY. Discussed how this is unlikely to be attributable to either the epidural placement procedure or a side effect of the epidural medications. The patient expressed understanding.
[2018-06-27] MEDS: DOCUSATE SODIUM 100 MG CAP PO PRN ×2 (14:51→20:52)
[2018-06-28] MEDS: ACETAMINOPHEN 325 MG TAB PO SCH ×5 (01:49→22:59)
[2018-06-28] MEDS: IBUPROFEN 600 MG TAB PO SCH ×5 (01:49→22:59)
[2018-06-28] MEDS: SENNOSIDES/DOCUSATE SODIUM TAB PO SCH ×2 (09:06→22:46)
[2018-06-28] MEDS: BISACODYL 10 MG SUPP PR PRN (16:34)
[2018-06-28] MEDS ORDERED: LR 1,000 ML IV SCH (17:00)
[2018-06-28] MEDS ORDERED: GLYCERIN PEDIATRIC 1 EACH SUPP PR ONE ×4 (17:32→19:54)
[2018-06-28] MEDS ORDERED: GLYCERIN ADULT 1 EACH SUPP PR ONE (18:10)
--- NOTE | 2018-06-28 18:25 | OBPP ---
Progress Note Assessment/Plan: Assessment: 48 y/o PPF #2 s/p IOL secondary to pre-eclampsia, post dates and oligo with retained placenta and PP hemorrhage Plan: Pt is asymptomatic from her anemia, on Ferrosequels. I ordered suppositories today and try to aid in constipation and also recommend MOM to help with epigastric pain but she declines. BP labile and some elevated, but not in severe range would not treat with anti-hypertensives now. Expect d/c home tomorrow with office visit for BP check. 06/28/18 18:26 Subjective/ Course: Steffi is doing pretty good this AM - still quite exhausted. BF going well, baby girl doing well. Excited to get off magnesium at 1500. No new s/sx of evolving PIH. Trying some breakfast. 06/28/18 18:21 Pt is doing better today. She is complaining of discomfort and pain with swallowing due to discomfort from her back and she suspects the epidural effects. She has had difficulties eating and drinking enough today and would like some IVF. She also is concerned about constipation because she has not had a BM in several days. She has tried Sennokot and colace, but would like to try a suppository today. She also would like to try sitz baths for perineal discomfort. She reports nursing is going well and baby has a good latch. She denies DURANT, or scotomata. Objective: 06/27/18 06:05 06/26/18 12:35 Patient ABO/Rh O POSITIVE 06/24/18 23:04 Uric Acid 6.4 mg/dL (2.5-6.8) 06/26/18 12:35 Total Bilirubin 0.6 mg/dL (0.1-1.4) 06/26/18 12:35 Conjugated Bilirubin 0.2 mg/dL (0.0-0.5) 06/26/18 12:35 Unconjugated Bilirubin 0.4 mg/dL (0.0-1.1) 06/26/18 12:35 AST 23 IU/L (14-46) 06/26/18 12:35 ALT 28 IU/L (9-52) 06/26/18 12:35 Lactate Dehydrogenase 583 IU/L (313-618) 06/26/18 12:35 Group B Strep DNA NEGATIVE (NEGATIVE) 06/25/18 12:37 Temp Pulse Resp BP Pulse Ox 37.2 C 74 16 156/85 H 94 06/28/18 16:05 06/28/18 16:05 06/28/18 16:05 06/28/18 16:05 06/28/18 16:05 Uterine Position/Fundal Height: At Umbilicus Uterine Tone: Firm Physical Exam - Physical Exam General Appearance: alert, no apparent distress Neck: non-tender, full range of motion, supple Respiratory: chest non-tender, lungs clear, normal breath sounds Cardiac/Chest: regular rate, rhythm Abdomen: normal bowel sounds, other (mild discomfort in fundal fibroid to touch ) Extremities: swelling (tr), Julisa's sign (neg)
[2018-06-28] MEDS: FERRO-SEQUELS 65 MG TAB.ER PO SCH (23:00)
[2018-06-29] MEDS: ACETAMINOPHEN 325 MG TAB PO SCH ×4 (05:14→23:19)
[2018-06-29] MEDS: IBUPROFEN 600 MG TAB PO SCH ×4 (05:15→23:18)
[2018-06-29] MEDS: BISACODYL 10 MG SUPP PR PRN (10:33)
--- NOTE | 2018-06-29 10:34 | OBPP ---
Progress Note Assessment/Plan: Assessment:48 PPD#3 s/p c/b preeclampsia with severe features, now c/b minimal return of bowel function, and multiple somatic symptoms, declines pain medication, anemic - asymptomatic except for fatigue. Plan: Encouraged oral hydration, ambulation with goal of a BM this afternoon. If pt has a BM and feels more comfortable, will plan dc home this afternoon. If not, will focus on a more intensive bowel regimen and anticipate dc home tomorrow. Shelley Bhandari MD, [facility] 06/29/18 11:10 Subjective/ Course: Steffi is doing pretty good this AM - still quite exhausted. BF going well, baby girl doing well. Excited to get off magnesium at 1500. No new s/sx of evolving PIH. Trying some breakfast. 06/28/18 18:21 Pt is doing better today. She is complaining of discomfort and pain with swallowing due to discomfort from her back and she suspects the epidural effects. She has had difficulties eating and drinking enough today and would like some IVF. She also is concerned about constipation because she has not had a BM in several days. She has tried Sennokot and colace, but would like to try a suppository today. She also would like to try sitz baths for perineal discomfort. She reports nursing is going well and baby has a good latch. She denies DURANT, or scotomata. 06/29/18 11:15 Pt is anxious about going home today - says she doesn't feel medically safe without having a normal BM, since she feels "backed up" as she hasn't had a regular BM in days. Just tried another suppository now. Had a small BM last night. Is drinking sips of water and other liquids, but has concerns about the low quality of food and fiber here. NO DURANT or vis changes. No lightheadedness or dizziness with ambulation, though is fatigued. 06/29/18 11:19 Objective: 06/27/18 06:05 06/26/18 12:35 Patient ABO/Rh O POSITIVE 06/24/18 23:04 Uric Acid 6.4 mg/dL (2.5-6.8) 06/26/18 12:35 Total Bilirubin 0.6 mg/dL (0.1-1.4) 06/26/18 12:35 Conjugated Bilirubin 0.2 mg/dL (0.0-0.5) 06/26/18 12:35 Unconjugated Bilirubin 0.4 mg/dL (0.0-1.1) 06/26/18 12:35 AST 23 IU/L (14-46) 06/26/18 12:35 ALT 28 IU/L (9-52) 06/26/18 12:35 Lactate Dehydrogenase 583 IU/L (313-618) 06/26/18 12:35 Group B Strep DNA NEGATIVE (NEGATIVE) 06/25/18 12:37 Temp Pulse Resp BP Pulse Ox 37.2 C 72 14 142/79 H 95 06/28/18 20:00 06/29/18 05:30 06/28/18 20:00 06/29/18 05:30 06/28/18 20:00 gen - pleasant female, NAD, CV - RRR chest - CTAB abd - soft, fundus firm at u - 1, + BS ext - 1+ pitting edema BLE, no calf tenderness Uterine Position/Fundal Height: Umbilicus -1
[2018-06-29] MEDS: FERRO-SEQUELS 65 MG TAB.ER PO SCH ×2 (10:36→23:18)
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
[2018-06-29] MEDS: SENNOSIDES/DOCUSATE SODIUM TAB PO SCH (17:09)
[2018-06-29] MEDS: MAGNESIUM HYDROXIDE 30 ML UDCUP PO PRN (17:45)
[2018-06-30] MEDS: SENNOSIDES/DOCUSATE SODIUM TAB PO SCH ×3 (01:50→17:00)
[2018-06-30] MEDS: ACETAMINOPHEN 325 MG TAB PO SCH ×3 (05:46→18:30)
[2018-06-30] MEDS: IBUPROFEN 600 MG TAB PO SCH ×3 (05:46→18:30)
[2018-06-30] MEDS: BISACODYL 10 MG SUPP PR PRN (10:15)
[2018-06-30] MEDS: FERRO-SEQUELS 65 MG TAB.ER PO SCH (11:04)
[2018-06-30 11:05] VITALS: BP 149/84
[2018-06-30] MEDS ORDERED: MEASLES,MUMPS&RUBELLA VACC/PF 0.5 ML VIAL SC ONE (13:36)
--- NOTE | 2018-06-30 13:49 | OBPP ---
Progress Note Assessment/Plan: Assessment: 48 go ppd# 4 s/p s/p iol for post dates and severe pig s/p mag sulfate pumping hx constipation - anxiety about bowel movement fibroids baby in nicu 06/30/18 13:48 Subjective/ Course: Steffi is doing pretty good this AM - still quite exhausted. BF going well, baby girl doing well. Excited to get off magnesium at 1500. No new s/sx of evolving PIH. Trying some breakfast. 06/28/18 18:21 Pt is doing better today. She is complaining of discomfort and pain with swallowing due to discomfort from her back and she suspects the epidural effects. She has had difficulties eating and drinking enough today and would like some IVF. She also is concerned about constipation because she has not had a BM in several days. She has tried Sennokot and colace, but would like to try a suppository today. She also would like to try sitz baths for perineal discomfort. She reports nursing is going well and baby has a good latch. She denies DURANT, or scotomata. 06/29/18 11:15 Pt is anxious about going home today - says she doesn't feel medically safe without having a normal BM, since she feels "backed up" as she hasn't had a regular BM in days. Just tried another suppository now. Had a small BM last night. Is drinking sips of water and other liquids, but has concerns about the low quality of food and fiber here. NO DURANT or vis changes. No lightheadedness or dizziness with ambulation, though is fatigued. 06/30/18 13:49 patient is doing well. pain is well controlled. having multiple sensations in her body that are causing her anxiety. has a long history of constipation. anxious about having bowel movememnts with second degree laceration repair. has been on bowel protocol and had multiple small bowel movements. would like another suppository and sennakot prior to discharge and would like to "meter" her having bowel movements so they are not too big. having awareness of common bile duct and liver - per patient because she has never had medication and her body is processing it. feels like accupunture treatments are helping. feels might have some gerd. interested in trying zantac. primary concern is about baby now. glad she was in the hospital when the baby turned blue but sad the baby is getting antibiotics. working on pumping. voiding without difficulty. denies headache and changes in vision. mood good per patient. has good support. will be discharged to [facility] 06/30/18 13:51 Objective: 06/27/18 06:05 06/26/18 12:35 Patient ABO/Rh O POSITIVE 06/24/18 23:04 Uric Acid 6.4 mg/dL (2.5-6.8) 06/26/18 12:35 Total Bilirubin 0.6 mg/dL (0.1-1.4) 06/26/18 12:35 Conjugated Bilirubin 0.2 mg/dL (0.0-0.5) 06/26/18 12:35 Unconjugated Bilirubin 0.4 mg/dL (0.0-1.1) 06/26/18 12:35 AST 23 IU/L (14-46) 06/26/18 12:35 ALT 28 IU/L (9-52) 06/26/18 12:35 Lactate Dehydrogenase 583 IU/L (313-618) 06/26/18 12:35 Group B Strep DNA NEGATIVE (NEGATIVE) 06/25/18 12:37 Temp Pulse Resp BP Pulse Ox 37.0 C 75 16 149/84 H 94 06/30/18 10:20 06/30/18 10:20 06/30/18 10:20 06/30/18 10:20 06/29/18 23:12 Physical Exam - Physical Exam Neck: non-tender, full range of motion Respiratory: chest non-tender, lungs clear, normal breath sounds Cardiac/Chest: normal peripheral pulses, regular rate, rhythm Abdomen: normal bowel sounds, non-tender Extremities: normal range of motion, non-tender, normal inspection, normal capillary refill Skin: normal color, warm/dry Neuro/Psych: no motor/sensory deficits, alert, normal mood/affect, oriented x 3
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
[2018-06-30] MEDS ORDERED: FAMOTIDINE 20 MG TAB PO SCH (14:00)
== END 2018-06-30 19:00 | disposition home or self-care (01) | DRG 560 ==
LOC: FLD 17:20 → OBSVTOIN 17:55 → FOB 06-27 18:15
PROVIDERS: ADMIT Advanced Practice Midwife; ATTEND Advanced Practice Midwife
PROC: 0KQM0ZZ Repair Perineum Muscle, Open Approach (ICD-10-PCS; principal; 2018-06-26)
PROC: 10907ZC Drainage of Amniotic Fluid, Therapeutic from Products of Conception, Via Natural or Artificial Opening (ICD-10-PCS; principal; 2018-06-26)
PROC: 10E0XZZ Delivery of Products of Conception, External Approach (ICD-10-PCS; principal; 2018-06-26)
DX: O48.1 Prolonged pregnancy (principal); O41.03X0 Oligohydramnios, third trimester, not applicable or unspecified; O34.13 Maternal care for benign tumor of corpus uteri, third trimester; D25.1 Intramural leiomyoma of uterus; Z37.0 Single live birth; Z3A.42 42 weeks gestation of pregnancy; O99.284 Endocrine, nutritional and metabolic diseases complicating childbirth; E03.9 Hypothyroidism, unspecified; O14.94 Unspecified pre-eclampsia, complicating childbirth; O70.1 Second degree perineal laceration during delivery
CPT/HCPCS: J0610; J2370; J2590; J3010; J3105; J3475